=== PATIENT | female | born 1935 | race Caucasian/White ===

== ENCOUNTER → 2019-07-10 14:11 | Outpatient (CLI) | payer MEDICARE, SELFPAY ==
--- NOTE | 2019-07-10 14:23 | FL_ITS ---
PROCEDURE: FL VOIDING CYSTOURETHROGRAM CLINICAL INDICATION: CHRONIC INCONTINENCE COMPARISON: No exams were available for comparison FINDINGS: Risk Intern exam shows postsurgical changes of the lumbar spine at L4-L5 and S1 with inter pedicular screws along with a neural stimulator device in the right iliac fossa region and extending along the left paracentral aspect of the sacrum with surgical clips in the S1 area. 350 cc of Isovue 200 was instilled into the urinary bladder via Suarez catheter. There are bilateral bladder diverticula. No obvious mass evident at the bladder. The patient could not void for postvoid or voiding exam. No passive reflux was evident. There is a suspected renal stone at 7 mm and additional small left renal stone at 4 mm. IMPRESSION: 1. Multiple small bladder diverticula. 2. No passive reflux was evident. The patient was unable to void during or after the exam. 3. Left nephrolithiasis Dictated by: Luis Mosley MD 07/10/2019 16:29 Signed by: <Electronically signed by Luis Mosley MD in [place]> 07/10/2019 16:29
== END ==
PROVIDERS: PCP Internal Medicine; Visit Provider Internal Medicine
DX: N39.498 Other specified urinary incontinence (principal)
CPT/HCPCS: 74455; Q9966

== ENCOUNTER → 2019-08-02 14:14 | Outpatient (CLI) | payer MEDICARE, SELFPAY | PROVIDERS: Visit Provider Urology | DX: R39.89 Other symptoms and signs involving the genitourinary system (principal) | CPT/HCPCS: 87086; 87088; 87186 ==

== ENCOUNTER → 2020-10-03 15:32 | Outpatient (CLI) | payer MEDICARE, SELFPAY ==
--- NOTE | 2020-10-03 15:35 | CT_ITS ---
PROCEDURE: CT HEAD/BRAIN WO CON CLINICAL INDICATION: CONFUSION, DEMENTIA COMPARISON: CT HDWO CT HEAD W/O CONTRAST from 03/26/2015 TECHNIQUE: Axial images obtained. All CT scans at the facility use one or more dose reduction, viz: automated exposure control, ma/kV adjustment per patient size (including targeted exams where dose is matched to indication, i.e. head), or iterative reconstruction technique. FINDINGS: No midline shift, mass effect, intracranial hemorrhage, hydrocephalus, or extra-axial fluid collection is evident. There is generalized atrophy with hypoattenuation of the periventricular white matter consistent with microangiopathic changes. The calvarium has an unremarkable appearance. No mastoid effusion. No sinus air-fluid level. IMPRESSION: No acute intracranial finding Dictated by: Luis Mosley MD 10/03/2020 16:49 Luis Mosley MD in [place] 10/03/2020 16:49
== END ==
PROVIDERS: PCP Internal Medicine; Visit Provider Internal Medicine
DX: R41.0 Disorientation, unspecified (principal); F03.90 Unspecified dementia, unspecified severity, without behavioral disturbance, psychotic disturbance, mood disturbance, and anxiety
CPT/HCPCS: 70450

== ENCOUNTER → 2021-09-08 17:22 | Outpatient (CLI) | payer MEDICARE, SELFPAY ==
[2021-09-08 18:04] LABS: Basophils # 0.1 K/mm3 (0-0.2); Basophils % 1.7 % (0.1-2.0); Eosinophils # 0.1 K/mm3 (0.0-0.4); Eosinophils % 1.8 % (0.1-12.0); Hematocrit 38.8 % (37.0-47.0); Hemoglobin 12.5 g/dL (12.2-16.2); Lymphocytes % 34.4 % (10-50); Mean Corpuscular HGB Conc 32.2 g/dL (31.8-35.4); Mean Corpuscular Hemoglobin 32.8 pg (27.0-31.2); Mean Platelet Volume 9.2 fl (7.4-10.4); Monocytes # 0.3 K/mm3 (0.1-1.0); Monocytes % 4.4 % (1.7-9.3); Neutrophils # 3.4 K/mm3 (1.8-7.8); Neutrophils % 57.7 % (37.0-80.0); Platelet Count 166 K/mm3 (142-424); Red Blood Count 3.81 M/mm3 (4.20-5.40); Red Cell Distribution Width 14.1 % (11.5-17.5); White Blood Count 5.9 K/mm3 (4.8-10.8)
[2021-09-08 18:44] LABS: Alanine Aminotransferase 11 U/L (12-78); Alkaline Phosphatase 122 U/L (38-126); Anion Gap 13.3 mEq/L (5-15); Aspartate Amino Transferase 22 U/L (14-36); Bilirubin,Total 0.8 mg/dl (0.2-1.3); Blood Urea Nitrogen 20 mg/dl (7-17); Calcium 9.4 mg/dl (8.4-10.2); Carbon Dioxide 27 mmol/L (22.0-30.0); Chloride 102 mmol/L (98-107); Chol/HDL Ratio 2.2 (1-3.5); Cholesterol 177 mg/dl (140-200); Estimated Glomerular Filt Rate 59 ml/min (>60); GFR (African American) 72 ML/MIN (>60); Glucose 85 mg/dl (74-100); HDL Cholesterol 82 mg/dl (40-60); Potassium 4.3 mmoL/L (3.5-5.1); Sodium 138 mmol/L (136-145); Triglycerides 103 mg/dl (30-150); VLDL Cholesterol 21 mg/dL (0-40)
[2021-09-08 18:55] LABS: Direct LDL Cholesterol 68.46 mg/dL (100-129); Hemoglobin A1C 7.1 % (4.0-6.0)
== END ==
PROVIDERS: Visit Provider Internal Medicine
DX: E11.9 Type 2 diabetes mellitus without complications (principal); E78.5 Hyperlipidemia, unspecified; N18.9 Chronic kidney disease, unspecified; N31.2 Flaccid neuropathic bladder, not elsewhere classified; M79.7 Fibromyalgia; M15.0 Primary generalized (osteo)arthritis; I12.9 Hypertensive chronic kidney disease with stage 1 through stage 4 chronic kidney disease, or unspecified chronic kidney disease
CPT/HCPCS: 80053; 80061; 83036; 85025

== ENCOUNTER → 2021-09-16 15:30 | Outpatient (CLI) | payer MEDICARE, SELFPAY ==
[2021-09-16 16:20] LABS: Reticulocyte % (Auto) 1.6 % (0.9-3.2)
[2021-09-16 17:56] LABS: Vitamin B12 229 pg/mL (239-931)
[2021-09-16 18:04] LABS: Folate 8.22 ng/mL
== END ==
PROVIDERS: Visit Provider Internal Medicine
DX: R71.8 Other abnormality of red blood cells (principal)
CPT/HCPCS: 36415; 82607; 82746; 85044

== ENCOUNTER → 2022-03-22 17:03 | Outpatient (CLI) | payer MEDICARE, SELFPAY ==
[2022-03-22 20:08] LABS: Hemoglobin A1C 5.1 % (4.0-6.0)
[2022-03-22 20:34] LABS: Alanine Aminotransferase 10 U/L (12-78); Albumin Level 4.1 g/dl (3.5-5.0); Albumin/Globulin Ratio 2.4 (1.1-1.8); Alkaline Phosphatase 106 U/L (38-126); Anion Gap 15.4 mEq/L (5-15); Aspartate Amino Transferase 19 U/L (14-36); Bilirubin,Total 0.7 mg/dl (0.2-1.3); Blood Urea Nitrogen 24 mg/dl (7-17); Calcium 9.2 mg/dl (8.4-10.2); Carbon Dioxide 23 mmol/L (22.0-30.0); Chloride 104 mmol/L (98-107); Chol/HDL Ratio 2.8 (1-3.5); Cholesterol 170 mg/dl (140-200); Estimated Glomerular Filt Rate 53 ml/min (>60); GFR (African American) 64 ML/MIN (>60); Globulin 1.7 g/dL (1.3-3.2); Glucose 96 mg/dl (74-100); HDL Cholesterol 60 mg/dl (40-60); Potassium 4.4 mmoL/L (3.5-5.1); Sodium 138 mmol/L (136-145); Total Protein,Serum 5.8 g/dl (6.3-8.2); Triglycerides 141 mg/dl (30-150); VLDL Cholesterol 28 mg/dL (0-40)
[2022-03-22 20:45] LABS: Direct LDL Cholesterol 77.27 mg/dL (100-129)
== END ==
PROVIDERS: PCP Internal Medicine; Visit Provider Internal Medicine
DX: E11.22 Type 2 diabetes mellitus with diabetic chronic kidney disease (principal); I10 Essential (primary) hypertension; E78.5 Hyperlipidemia, unspecified; E53.8 Deficiency of other specified B group vitamins; G30.9 Alzheimer's disease, unspecified; N31.2 Flaccid neuropathic bladder, not elsewhere classified; M15.0 Primary generalized (osteo)arthritis
CPT/HCPCS: 80053; 80061; 83036

== ENCOUNTER → 2022-08-10 16:39 | Outpatient (CLI) | payer MEDICARE, SELFPAY | PROVIDERS: Visit Provider Urology | DX: N39.0 Urinary tract infection, site not specified (principal); B96.89 Other specified bacterial agents as the cause of diseases classified elsewhere | CPT/HCPCS: 87086; 87088; 87186 ==

== ENCOUNTER → 2022-09-21 17:02 | Outpatient (CLI) | payer MEDICARE, SELFPAY ==
[2022-09-21 17:51] LABS: Basophils # 0.1 K/mm3 (0-0.2); Basophils % 0.9 % (0.1-2.0); Eosinophils # 0.1 K/mm3 (0.0-0.4); Eosinophils % 1.5 % (0.1-12.0); Hematocrit 40.8 % (37.0-47.0); Lymphocytes # 2.3 K/mm3 (0.7-4.5); Lymphocytes % 30.9 % (10-50); Mean Corpuscular HGB Conc 31.8 g/dL (31.8-35.4); Mean Corpuscular Hemoglobin 31.4 pg (27.0-31.2); Mean Corpuscular Volume 98.8 fl (81-99); Mean Platelet Volume 8.7 fl (7.4-10.4); Monocytes # 0.3 K/mm3 (0.1-1.0); Monocytes % 4.1 % (1.7-9.3); Neutrophils # 4.6 K/mm3 (1.8-7.8); Neutrophils % 62.5 % (37.0-80.0); Platelet Count 158 K/mm3 (142-424); Red Blood Count 4.13 M/mm3 (4.20-5.40); Red Cell Distribution Width 13.8 % (11.5-17.5); White Blood Count 7.3 K/mm3 (4.8-10.8)
[2022-09-21 18:27] LABS: Hemoglobin A1C 5.1 % (4.0-6.0)
[2022-09-21 20:12] LABS: Alanine Aminotransferase 11 U/L (12-78); Albumin Level 4.2 g/dl (3.5-5.0); Albumin/Globulin Ratio 2.3 (1.1-1.8); Alkaline Phosphatase 106 U/L (38-126); Aspartate Amino Transferase 20 U/L (14-36); Bilirubin,Total 0.5 mg/dl (0.2-1.3); Blood Urea Nitrogen 21 mg/dl (7-17); Calcium 9.5 mg/dl (8.4-10.2); Carbon Dioxide 26 mmol/L (22.0-30.0); Chloride 99 mmol/L (98-107); Chol/HDL Ratio 3.2 (1-3.5); Cholesterol 180 mg/dl (140-200); Estimated Glomerular Filt Rate 42 ml/min (>60); GFR (African American) 51 ML/MIN (>60); Globulin 1.8 g/dL (1.3-3.2); Glucose 85 mg/dl (74-100); HDL Cholesterol 57 mg/dl (40-60); Sodium 140 mmol/L (136-145); Triglycerides 146 mg/dl (30-150); VLDL Cholesterol 29 mg/dL (0-40)
[2022-09-21 22:29] LABS: Direct LDL Cholesterol 89.28 mg/dL (100-129)
== END ==
PROVIDERS: PCP Internal Medicine; Visit Provider Internal Medicine
DX: E11.42 Type 2 diabetes mellitus with diabetic polyneuropathy (principal); F03.90 Unspecified dementia, unspecified severity, without behavioral disturbance, psychotic disturbance, mood disturbance, and anxiety; I10 Essential (primary) hypertension; M15.0 Primary generalized (osteo)arthritis; M79.7 Fibromyalgia; E53.8 Deficiency of other specified B group vitamins; N18.30 Chronic kidney disease, stage 3 unspecified; N31.2 Flaccid neuropathic bladder, not elsewhere classified; B96.89 Other specified bacterial agents as the cause of diseases classified elsewhere; R82.90 Unspecified abnormal findings in urine
CPT/HCPCS: 80053; 80061; 83036; 85025; 87086; 87088; 87186

== ENCOUNTER → 2022-10-26 14:27 | Outpatient (CLI) | payer MEDICARE, SELFPAY | PROVIDERS: PCP Internal Medicine; Visit Provider Internal Medicine | DX: N39.0 Urinary tract infection, site not specified (principal); B95.2 Enterococcus as the cause of diseases classified elsewhere | CPT/HCPCS: 87086; 87186 ==

== ENCOUNTER 2022-11-08 12:57 | Outpatient (CLI) | payer MEDICARE, SELFPAY ==
[2022-11-08 13:34] VITALS: BP 146/81; PULSE 74; RESP 18; O2SAT 97
[2022-11-08 13:37] VITALS: BP 142/71; PULSE 72; RESP 18; O2SAT 97
== END 2022-11-08 13:38 | disposition home or self-care (01) ==
LOC: INF 12:59
PROVIDERS: PCP Internal Medicine; Visit Provider Internal Medicine
DX: N39.0 Urinary tract infection, site not specified (principal)
CPT/HCPCS: 96372; J0696

== ENCOUNTER 2022-11-09 13:20 | Outpatient (CLI) | payer MEDICARE, SELFPAY ==
[2022-11-09 13:48] VITALS: BP 144/89; PULSE 76; RESP 18; O2SAT 96
== END 2022-11-09 13:50 | disposition home or self-care (01) ==
LOC: INF 13:21
PROVIDERS: PCP Internal Medicine; Visit Provider Internal Medicine
DX: N39.0 Urinary tract infection, site not specified (principal); B95.2 Enterococcus as the cause of diseases classified elsewhere
CPT/HCPCS: 96372; J0696

== ENCOUNTER 2022-11-10 13:05 | Outpatient (CLI) | payer MEDICARE, SELFPAY ==
[2022-11-10 13:25] VITALS: BP 118/57; PULSE 67; RESP 18; O2SAT 98
== END 2022-11-10 13:25 | disposition home or self-care (01) ==
LOC: INF 13:06
PROVIDERS: PCP Internal Medicine; Visit Provider Internal Medicine
DX: N39.0 Urinary tract infection, site not specified (principal)
CPT/HCPCS: 96372; J0696

== ENCOUNTER 2022-11-11 12:55 | Outpatient (CLI) | payer MEDICARE, SELFPAY ==
[2022-11-11 13:43] VITALS: BP 127/83; PULSE 71; RESP 18; TEMP 36.6; O2SAT 97
== END 2022-11-11 14:02 | disposition home or self-care (01) ==
LOC: INF 12:56
PROVIDERS: PCP Internal Medicine; Visit Provider Internal Medicine
DX: N39.0 Urinary tract infection, site not specified (principal)
CPT/HCPCS: 96372; J0696

== ENCOUNTER 2022-11-12 13:01 | Outpatient (CLI) | payer MEDICARE, SELFPAY ==
[2022-11-12 13:37] VITALS: BP 152/77; PULSE 64; RESP 18; O2SAT 96
== END 2022-11-12 13:39 | disposition home or self-care (01) ==
LOC: INF 13:02
PROVIDERS: PCP Internal Medicine; Visit Provider Internal Medicine
DX: N39.0 Urinary tract infection, site not specified (principal)
CPT/HCPCS: 96372; J0696

== ENCOUNTER → 2022-11-13 12:57 | Outpatient (CLI) | payer MEDICARE, SELFPAY ==
[2022-11-13 13:15] VITALS: BP 162/90; PULSE 62; RESP 17; TEMP 36.7; O2SAT 98
== END ==
PROVIDERS: PCP Internal Medicine; Visit Provider Internal Medicine
DX: N39.0 Urinary tract infection, site not specified (principal)
CPT/HCPCS: 96372; J0696

== ENCOUNTER 2022-11-14 13:01 | Outpatient (CLI) | payer MEDICARE, SELFPAY ==
[2022-11-14 13:33] VITALS: BMI 28.0
== END 2022-11-14 13:30 | disposition home or self-care (01) ==
LOC: INF 13:02
PROVIDERS: PCP Internal Medicine; Visit Provider Internal Medicine
DX: N39.0 Urinary tract infection, site not specified (principal)
CPT/HCPCS: 96372; J0696

== ENCOUNTER → 2023-03-21 16:46 | Outpatient (CLI) | payer MEDICARE, SELFPAY ==
[2023-03-21 17:42] LABS: Alanine Aminotransferase 14 U/L (12-78); Albumin/Globulin Ratio 2.2 (1.1-1.8); Alkaline Phosphatase 92 U/L (38-126); Aspartate Amino Transferase 22 U/L (14-36); Bilirubin,Total 0.6 mg/dl (0.2-1.3); Blood Urea Nitrogen 15 mg/dl (7-17); Carbon Dioxide 27 mmol/L (22.0-30.0); Chloride 98 mmol/L (98-107); Chol/HDL Ratio 3.2 (1-3.5); Cholesterol 160 mg/dl (140-200); Estimated Glomerular Filt Rate 52 ml/min (>60); GFR (African American) 63 ML/MIN (>60); Globulin 1.8 g/dL (1.3-3.2); Glucose 88 mg/dl (74-100); HDL Cholesterol 50 mg/dl (40-60); Sodium 139 mmol/L (136-145); Total Protein,Serum 5.8 g/dl (6.3-8.2); Triglycerides 179 mg/dl (30-150); VLDL Cholesterol 36 mg/dL (0-40)
[2023-03-21 17:53] LABS: Direct LDL Cholesterol 82.29 mg/dL (100-129)
== END ==
PROVIDERS: PCP Internal Medicine; Visit Provider Internal Medicine
DX: E11.22 Type 2 diabetes mellitus with diabetic chronic kidney disease (principal); E53.8 Deficiency of other specified B group vitamins; I10 Essential (primary) hypertension; N18.30 Chronic kidney disease, stage 3 unspecified; N31.2 Flaccid neuropathic bladder, not elsewhere classified; G30.9 Alzheimer's disease, unspecified; L30.4 Erythema intertrigo; E78.5 Hyperlipidemia, unspecified
CPT/HCPCS: 80053; 80061; 83036

== ENCOUNTER → 2023-06-20 16:56 | Outpatient (CLI) | payer MEDICARE, SELFPAY ==
[2023-06-20 18:08] LABS: Microscopic, Urine URINE MICROSCOPIC (MICROSCOPIC)
[2023-06-20 18:17] LABS: Appearance,Urine CLEAR (Clear); Blood, Urine Negative (Negative); Color,Urine YELLOW (Yellow); Glucose,Urine (UA) Negative (Negative); Ketones,Urine TRACE (Negative); Leukocyte Esterase,Urine 2+ (Negative); Nitrate,Urine Negative (Negative); Protein,Urine 2+ (Negative)
[2023-06-20 18:18] LABS: Bilirubin,Urine 1+ (Negative)
[2023-06-20 18:28] LABS: Bacteria,Urine 2+ /lpf; Calcium Oxalate Crystals,Urine 4+ /lpf; WBC,Urine TNTC #/hpf (0-3)
== END ==
PROVIDERS: PCP Internal Medicine; Visit Provider Internal Medicine
DX: N39.0 Urinary tract infection, site not specified (principal); B96.4 Proteus (mirabilis) (morganii) as the cause of diseases classified elsewhere
CPT/HCPCS: 81001; 87086; 87088; 87186

== ENCOUNTER → 2023-09-20 16:40 | Outpatient (CLI) | payer MEDICARE, SELFPAY ==
[2023-09-20 17:33] LABS: Basophils % 0.5 % (0.1-2.0); Eosinophils # 0.2 K/mm3 (0.0-0.4); Eosinophils % 2.1 % (0.1-12.0); Hematocrit 36.7 % (37.0-47.0); Hemoglobin 12.7 g/dL (12.2-16.2); Lymphocytes # 2.5 K/mm3 (0.7-4.5); Lymphocytes % 35.1 % (10-50); Mean Corpuscular HGB Conc 34.5 g/dL (31.8-35.4); Mean Corpuscular Hemoglobin 34.1 pg (27.0-31.2); Mean Corpuscular Volume 99.1 fl (81-99); Monocytes # 0.3 K/mm3 (0.1-1.0); Monocytes % 3.9 % (1.7-9.3); Neutrophils # 4.2 K/mm3 (1.8-7.8); Neutrophils % 58.4 % (37.0-80.0); Platelet Count 161 K/mm3 (142-424); Red Blood Count 3.71 M/mm3 (4.20-5.40); Red Cell Distribution Width 14.2 % (11.5-17.5); White Blood Count 7.1 K/mm3 (4.8-10.8)
[2023-09-20 18:04] LABS: Alanine Aminotransferase 10 U/L (12-78); Albumin Level 3.9 g/dl (3.5-5.0); Albumin/Globulin Ratio 2.1 (1.1-1.8); Alkaline Phosphatase 81 U/L (38-126); Anion Gap 15.2 mEq/L (5-15); Aspartate Amino Transferase 20 U/L (14-36); Bilirubin,Total 0.6 mg/dl (0.2-1.3); Blood Urea Nitrogen 16 mg/dl (7-17); Carbon Dioxide 26 mmol/L (22.0-30.0); Chloride 104 mmol/L (98-107); Chol/HDL Ratio 3.2 (1-3.5); Cholesterol 170 mg/dl (140-200); Estimated Glomerular Filt Rate 59 ml/min (>60); GFR (African American) 71 ML/MIN (>60); Globulin 1.9 g/dL (1.3-3.2); Glucose 91 mg/dl (74-100); HDL Cholesterol 53 mg/dl (40-60); Potassium 4.2 mmoL/L (3.5-5.1); Sodium 141 mmol/L (136-145); Total Protein,Serum 5.8 g/dl (6.3-8.2); Triglycerides 101 mg/dl (30-150); VLDL Cholesterol 20 mg/dL (0-40)
[2023-09-20 18:08] LABS: Hemoglobin A1C 4.9 % (4.0-6.0)
[2023-09-20 18:21] LABS: Direct LDL Cholesterol 93.45 mg/dL (100-129)
== END ==
PROVIDERS: PCP Internal Medicine; Visit Provider Internal Medicine
DX: E11.22 Type 2 diabetes mellitus with diabetic chronic kidney disease (principal); E53.8 Deficiency of other specified B group vitamins; E78.5 Hyperlipidemia, unspecified; G30.9 Alzheimer's disease, unspecified; M15.0 Primary generalized (osteo)arthritis; M79.7 Fibromyalgia; N31.2 Flaccid neuropathic bladder, not elsewhere classified; N19 Unspecified kidney failure
CPT/HCPCS: 80053; 80061; 83036; 85025

== ENCOUNTER 2023-12-12 14:37 | Outpatient (CLI) | payer MEDICARE, SELFPAY ==
[2023-12-12 15:41] LABS: Thyroid Stimulating Hormone 0.96 uIU/mL (0.465-4.68)
[2023-12-12 16:17] LABS: Vitamin B12 831 pg/mL (239-931)
[2023-12-12 16:21] LABS: Folate 4.69 ng/mL
== END 2023-12-12 23:59 ==
LOC: LAB 14:38
PROVIDERS: PCP Internal Medicine; Visit Provider Nurse Practitioner Family
DX: E53.8 Deficiency of other specified B group vitamins (principal); R41.3 Other amnesia
CPT/HCPCS: 36415; 82607; 82746; 84443

== ENCOUNTER 2024-03-20 16:51 | Outpatient (CLI) | payer MEDICARE, SELFPAY ==
[2024-03-20 18:26] LABS: Alanine Aminotransferase 10 U/L (12-78); Albumin Level 4.1 g/dl (3.5-5.0); Albumin/Globulin Ratio 2.3 (1.1-1.8); Alkaline Phosphatase 85 U/L (38-126); Anion Gap 13.9 mEq/L (5-15); Aspartate Amino Transferase 20 U/L (14-36); Bilirubin,Total 0.8 mg/dl (0.2-1.3); Blood Urea Nitrogen 17 mg/dl (7-17); Calcium 9.4 mg/dl (8.4-10.2); Carbon Dioxide 29 mmol/L (22.0-30.0); Chloride 104 mmol/L (98-107); Chol/HDL Ratio 2.8 (1-3.5); Cholesterol 181 mg/dl (140-200); Estimated Glomerular Filt Rate 59 ml/min (>60); GFR (African American) 71 ML/MIN (>60); Globulin 1.8 g/dL (1.3-3.2); Glucose 85 mg/dl (74-100); HDL Cholesterol 65 mg/dl (40-60); Potassium 3.9 mmoL/L (3.5-5.1); Sodium 143 mmol/L (136-145); Total Protein,Serum 5.9 g/dl (6.3-8.2); Triglycerides 142 mg/dl (30-150); VLDL Cholesterol 28 mg/dL (0-40)
[2024-03-20 19:17] LABS: Hemoglobin A1C 4.9 % (4.0-6.0)
== END 2024-03-20 23:59 | disposition home or self-care (01) ==
LOC: LAB.DROPOF 16:52
PROVIDERS: PCP Internal Medicine; Visit Provider Internal Medicine
DX: E11.22 Type 2 diabetes mellitus with diabetic chronic kidney disease (principal); I10 Essential (primary) hypertension; E78.5 Hyperlipidemia, unspecified; M15.0 Primary generalized (osteo)arthritis; G30.9 Alzheimer's disease, unspecified; N31.2 Flaccid neuropathic bladder, not elsewhere classified; N19 Unspecified kidney failure
CPT/HCPCS: 80053; 80061; 83036

== ENCOUNTER 2024-04-19 17:04 | Observation (INO) | payer MEDICARE, SELFPAY ==
[2024-04-19 17:05] VITALS: BP 155/81; PULSE 70; RESP 18; TEMP 36.6; O2SAT 95; BMI 24.5
--- NOTE | 2024-04-19 17:13 | ED_ITS ---
<Statement entered by Ekaterina Miles DO - 04/19/24 19:38> I was consulted by the CAITLIN, and we discussed the complexity of the problems being addressed. I approved the treatment and management plan for this patient's care in the emergency department, thus performing a substantive portion of the medical decision making. Ekaterina Miles DO Discharge Plan Disposition Patient Disposition: Admitted Condition: Fair Clinical Impressions Clinical Impression: Urinary tract bacterial infections, Dementia with behavioral disturbance Discharge ED Provider: Ekaterina Miles General Adult HPI General Chief complaint: Altered Mental Status Stated complaint: diff swallowing, hallucinations, Time Seen by Provider: 04/19/24 17:07 History of Present Illness HPI narrative: Patient presents in the care of her son [id number] for evaluation of dementia with worsening behavioral disturbance. Patient has a longstanding history of dementia and has most recently been evaluated by neurology here at [facility] in November. Over the last week patient has had a cognitive decline with behavioral services such as asking where her is, asking to be taken home even though she is at her home etc. patient herself is a poor historian but denies chest pain shortness of breath fever chills hemoptysis hematochezia melena nausea vomiting diarrhea but keeps asking to be taken home. Related Data Home Medications Medication Instructions Recorded Confirmed losartan 100 1 tab PO DAILY Hypertension #90 08/02/19 11/30/23 mg-hydrochlorothiazide 12.5 mg tabs tablet oxybutynin chloride 15 mg 15 mg PO DAILY incontinence 11/08/22 11/30/23 tablet,extended release 24 hr sulfamethoxazole 400 1 tab PO DAILY Infection 11/08/22 11/30/23 mg-trimethoprim 80 mg tablet trazodone 50 mg tablet 100 mg PO DAILY sleep 11/30/23 11/30/23 Previous Rx's Medication Instructions Recorded donepezil 10 mg tablet 10 mg PO HS memory 90 days #90 11/30/23 tabs memantine 10 mg tablet 10 mg PO BID memory loss 90 days 11/30/23 #180 tabs Allergies Allergy/AdvReac Type Severity Reaction Status Date / Time No Known Allergies Allergy Verified 11/30/23 09:38 [facility] Disclaimer: The information contained in this section may have been updated after the patient was seen, as this information can be updated by other users. Medical History (Updated 04/19/24 @ 18:37 by JESSIKA Rojas) Memory change History of cataract History of arthritis History of kidney stones Hypertension Neurogenic bladder Back pain with history of spinal surgery UTI (urinary tract infection) Surgical History (Updated 11/30/23 @ 10:16 by Anya Amaya) History of cataract surgery History of total knee replacement History of discectomy Family History (Updated 11/30/23 @ 09:42 by Anya Amaya) Other Cancer Hypertension Stroke Social History (Updated 11/11/22 @ 13:51 by Duglas Navarro RN) Smoking Status: Unknown if ever smoked alcohol intake: never substance use type: denies use current occupational status: retired and disabled Travel in the last 8 weeks: None household members: spouse housing: house ROS Obtained: Yes Systems reviewed as appropriate & no additional complaints except as documented Physical Exam General General appearance: in no apparent distress Head Head exam: atraumatic Eye Eye exam: Present normal appearance, PERRL and EOMI Chest Chest inspection: Present normal inspection Respiratory Respiratory exam: Present normal lung sounds bilaterally; Absent respiratory distress or accessory muscle use Cardiovascular Cardiovascular exam: Present regular rate and normal rhythm Abdominal Exam Abdominal exam: Present soft and normal bowel sounds; Absent tenderness Extremities Exam Extremities exam: Present normal inspection and full ROM Back Exam Back exam: Present normal inspection and full ROM; Absent tenderness, CVA tenderness (R) or CVA tenderness (L) Neurological Exam Neurological exam: Absent alert (Patient is oriented to self not place or circumstance) or oriented X3 Psychiatric Psychiatric exam: Present normal affect (Pleasantly confused) and agitated (She is asking to go home but is cooperative currently) Skin Skin exam: Present warm, dry and normal color Medical Decision Making Medical Records Medical records reviewed: Yes I reviewed the patient's medical records. Alpesh Inquiry Pt receiving controlled substance: No Vital Signs: 04/19/24 17:05 04/19/24 18:01 04/19/24 19:00 Temperature 97.9 F Temperature Source Oral Pulse Rate 68 66 Pulse Rate [Radial] 70 Respiratory Rate 18 Blood Pressure 153/84 H 158/83 H Blood Pressure [Right Arm] 155/81 H Blood Pressure Mean 108 Blood Pressure Mean [Right Arm] 105 Blood Pressure Source [Right Arm] Automatic Cuff Blood Pressure Position [Right Arm] Sitting 02 Sat by Pulse Oximetry 95 95 96 Oxygen Delivery Method Room Air Lab Data Lab results reviewed: Yes I reviewed the patient's lab results. Lab Results 04/19/24 17:35: WBC 7.1, RBC 3.66 L, Hgb 12.3, Hct 37.1, MCV 101.3 H, MCH 33.6 H , MCHC 33.2, RDW 14.2, Plt Count 171, MPV 8.5, Neut % (Auto) 75.9, Lymph % (Auto) 18.7, [place] % (Auto) 3.8, Eos % (Auto) 0.7, Baso % (Auto) 0.8, Neut # (Auto) 5.4, Lymph # (Auto) 1.3, [place] # (Auto) 0.3, Eos # (Auto) 0.1, Baso # (Auto) 0.1, Sodium 141, Potassium 3.7, Chloride 103, Carbon Dioxide 26, Anion Gap 15.7 H, BUN 15, Creatinine 0.70, Estimated Creat Clear 36, Estimated GFR 79, Est GFR ( Amer) 96, Glucose 109 H, Calcium 9.4, Magnesium 1.6, Total Bilirubin 1.2, AST 24, ALT 15, Alkaline Phosphatase 81, Total Protein 6.4, Albumin 4.2, Globulin 2.2, Albumin/Globulin Ratio 1.9 H 04/19/24 17:38: Urine Color Yellow, Urine Appearance Sl cloudy, Urine pH 7.5, Ur Specific [place] 1.020, Urine Protein Negative, Urine Glucose (UA) Negative, Urine Ketones 1+, Urine Blood Negative, Urine Nitrate Negative, Urine Bilirubin Negative, Urine Urobilinogen 1.0, Ur Leukocyte Esterase 3+ A, Urine RBC None, Urine WBC 5-10, Ur Squamous Epith Cells Occasional, Amorphous Sediment 1+, Urine Bacteria 2+ 04/19/24 17:35 04/19/24 17:35 Orders (Tests/Meds): ED MEDICATIONS Generic Name Dose Route Start Last Admin Trade Name Freq PRN Reason Stop Dose Admin Donepezil HCl 10 mg 04/19/24 21:00 Donepezil 10mg Tab PO 05/19/24 20:59 HS JOCELIN Ceftriaxone Sodium 1 gm/ 50 mls @ 100 mls/hr 04/19/24 18:15 Sodium Chloride IV 04/29/24 18:14 Q24H JOCELIN Memantine 10 mg 04/19/24 21:00 Memantine 10mg Tablet PO 05/19/24 20:59 BID JOCELIN Non-Formulary Medication 1 tab 04/20/24 09:00 Losartan-Hydrochlorothiazide PO 05/20/24 08:59 DAILY JOCELIN Olanzapine 5 mg 04/19/24 21:00 Olanzapine 5 Mg Odt Tablet SL 05/19/24 20:59 HS JOCELIN Oxybutynin Chloride 5 mg 04/19/24 21:00 Oxybutynin 5mg Tab PO 05/19/24 20:59 TID JOCELIN ORDERS Category Date Time Status CBC w/Auto Diff [Complete Blood Count Auto Diff] Stat Lab 04/19/24 17:35 Completed CMP [Comprehensive Metabolic Panel] Stat Lab 04/19/24 17:35 Completed Complete Blood Count Auto Diff AMLAB Lab 04/20/24 06:00 Ordered Comprehensive Metabolic Panel AMLAB Lab 04/20/24 06:00 Ordered Magnesium AMLAB Lab 04/20/24 06:00 Ordered Magnesium Stat Lab 04/19/24 17:35 Completed UA [Urinalysis and Microscopic] Stat Lab 04/19/24 17:38 Completed Urine Culture Stat Micro 04/19/24 17:38 Received Medical Decision Narrative: In summary patient is a 88-year-old female who presents to the emergency department for evaluation of dementia with behavioral disturbance. Patient is hemodynamically stable upon arrival, afebrile. Physical exam is unremarkable and nonfocal with exception of the patient as pleasant but confused interactions currently. She is only oriented to self.. Differential diagnosis includes cognitive decline versus toxic metabolic encephalopathy, versus urinary tract infection etc. Initial workup will be conducted with hematologic labs urinalysis. Initial workup reviewed by me shows a normal white count however she does have evidence of a urinary tract infection. Upon repeat evaluation patient had no change in her behavior. Given this I had interactive discussion with hospital medicine regarding admission and they have graciously accepted her for further evaluation and care. Critical Care Critical Care Time Critical Care Time: No
[2024-04-19 17:41] LABS: Microscopic, Urine URINE MICROSCOPIC (MICROSCOPIC)
[2024-04-19 17:43] LABS: Basophils # 0.1 K/mm3 (0-0.2); Basophils % 0.8 % (0.1-2.0); Eosinophils # 0.1 K/mm3 (0.0-0.4); Eosinophils % 0.7 % (0.1-12.0); Hematocrit 37.1 % (37.0-47.0); Hemoglobin 12.3 g/dL (12.2-16.2); Lymphocytes # 1.3 K/mm3 (0.7-4.5); Lymphocytes % 18.7 % (10-50); Mean Corpuscular HGB Conc 33.2 g/dL (31.8-35.4); Mean Corpuscular Hemoglobin 33.6 pg (27.0-31.2); Mean Corpuscular Volume 101.3 fl (81-99); Mean Platelet Volume 8.5 fl (7.4-10.4); Monocytes # 0.3 K/mm3 (0.1-1.0); Monocytes % 3.8 % (1.7-9.3); Neutrophils # 5.4 K/mm3 (1.8-7.8); Neutrophils % 75.9 % (37.0-80.0); Platelet Count 171 K/mm3 (142-424); Red Blood Count 3.66 M/mm3 (4.20-5.40); Red Cell Distribution Width 14.2 % (11.5-17.5); White Blood Count 7.1 K/mm3 (4.8-10.8)
[2024-04-19 17:53] LABS: Alanine Aminotransferase 15 U/L (12-78); Albumin Level 4.2 g/dl (3.5-5.0); Albumin/Globulin Ratio 1.9 (1.1-1.8); Alkaline Phosphatase 81 U/L (38-126); Anion Gap 15.7 mEq/L (5-15); Aspartate Amino Transferase 24 U/L (14-36); Bilirubin,Total 1.2 mg/dl (0.2-1.3); Blood Urea Nitrogen 15 mg/dl (7-17); Calcium 9.4 mg/dl (8.4-10.2); Carbon Dioxide 26 mmol/L (22.0-30.0); Chloride 103 mmol/L (98-107); Creatinine Clearance Estimated 36 mL/min (50-200); Estimated Glomerular Filt Rate 79 ml/min (>60); GFR (African American) 96 ML/MIN (>60); Globulin 2.2 g/dL (1.3-3.2); Glucose 109 mg/dl (74-100); Magnesium 1.6 mg/dl (1.6-2.3); Potassium 3.7 mmoL/L (3.5-5.1); Sodium 141 mmol/L (136-145); Total Protein,Serum 6.4 g/dl (6.3-8.2)
[2024-04-19 17:56] LABS: Appearance,Urine SL CLOUDY (Clear); Bilirubin,Urine Negative (Negative); Blood, Urine Negative (Negative); Color,Urine YELLOW (Yellow); Glucose,Urine (UA) Negative (Negative); Ketones,Urine 1+ (Negative); Leukocyte Esterase,Urine 3+ (Negative); Nitrate,Urine Negative (Negative); PH,Urine 7.5 (5.0-8.5); Protein,Urine Negative (Negative)
[2024-04-19 18:01] VITALS: BP 153/84; PULSE 68; O2SAT 95
[2024-04-19 18:06] LABS: Amorphous Sediment,Urine 1+ /lpf; Bacteria,Urine 2+ /lpf; Squamous Epithelial Cell,Urine Occasional #/hpf (0-5)
--- NOTE | 2024-04-19 18:59 | PC.NURSE ---
INDEPENDENT DISTRIBUTOR NOTIFIED OF ADMISSION
[2024-04-19 19:00] VITALS: BP 158/83; PULSE 66; O2SAT 96
[2024-04-19 19:21] VITALS: BP 158/83; PULSE 66; RESP 16; TEMP 36.6; O2SAT 96
--- NOTE | 2024-04-19 19:37 | PC.NURSE ---
Patient arrived to floor via stretcher from ED at 19:32.
--- NOTE | 2024-04-19 19:38 | P.HP_ITS ---
History of Present Illness *Admission Date: 04/19/24 *Reason for visit:: behavioral disturbance. *History of present illness: This a 88yo F with PMHx of Alzheimer's dementia with behavioral disturbances, HTN, neurogenic bladder with urinary incontinence and recurrent UTI, brought in by caregiver to ED for evaluation of worsening behavioral disturbance. Patient alert and oriented to person only, not cooperative with the interview, there is not family available at the time of this assessment, therefore most of the history obtained by chart review and ED documentation. Patient has a longstanding history of dementia and has most recently been evaluated by neurology here at [facility] in November. Per ED. patient has had a cognitive decline with behavioral services such as asking where her is, asking to be taken home even though she is at her home etc. symptoms progressively worsened over the last week. Patient herself denies currently denies any symptoms including chest pain shortness of breath fever chills hemoptysis hematochezia melena nausea vomiting diarrhea but keeps asking to be taken home. Admitted for treatment and management [facility] Disclaimer: The information contained in this section may have been updated after the patient was seen, as this information can be updated by other users. Medical History (Updated 04/19/24 @ 20:40 by Pelon Kwan APRN) Memory change History of cataract History of arthritis History of kidney stones Hypertension Neurogenic bladder Back pain with history of spinal surgery UTI (urinary tract infection) Surgical History (Updated 11/30/23 @ 10:16 by Anya Amaya) History of cataract surgery History of total knee replacement History of discectomy Family History (Updated 11/30/23 @ 09:42 by Anya Amaya) Other Cancer Hypertension Stroke Social History (Updated 04/19/24 @ 21:32 by Jessika Fermin RN) Smoking Status: Unknown if ever smoked alcohol intake: never substance use type: denies use current occupational status: retired and disabled Travel in the last 8 weeks: None household members: spouse housing: house Review of Systems Review of Systems Review of systems:: unable to obtain Meds Home Medications and Allergies Home Medications Medication Instructions Recorded Confirmed Type oxybutynin chloride 15 mg 15 mg PO DAILY 11/08/22 04/20/24 History tablet,extended release 24 hr donepezil 10 mg tablet 10 mg PO HS memory 90 days #90 11/30/23 04/20/24 Rx tabs memantine 10 mg tablet 10 mg PO BID memory loss 90 days 11/30/23 04/20/24 Rx #180 tabs levofloxacin 750 mg tablet 750 mg PO DAILY 5 days #5 tabs 04/20/24 Rx losartan 100 mg tablet 100 mg PO DAILY 04/20/24 04/20/24 History methenamine hippurate 1 gram tablet 1 g PO BID 30 days #60 tabs 04/20/24 Rx olanzapine 5 mg disintegrating 5 mg sublingual HS PRN Insomnia 5 04/20/24 Rx tablet days #5 tabs trazodone 100 mg tablet 100 mg PO HS 04/20/24 04/20/24 History New Prescriptions to Start Prescriptions: levofloxacin Wilberto Bloom methenamine hippurate Wolf,Wilberto olanzapine Wilberto Bloom Allergies Allergy/AdvReac Type Severity Reaction Status Date / Time No Known Allergies Allergy Verified 11/30/23 09:38 Exam Data for Last 24 hours Vital signs and Labs for Last 24 Hours: Temp Pulse Resp BP Pulse Ox O2 Del Method 97.9 F 66 16 158/83 H 96 Room Air 04/19/24 19:21 04/19/24 19:21 04/19/24 19:21 04/19/24 19:21 04/19/24 19:00 04/19/24 17:05 Laboratory Results - last 24 hr 04/19/24 17:35: WBC 7.1, RBC 3.66 L, Hgb 12.3, Hct 37.1, MCV 101.3 H, MCH 33.6 H , MCHC 33.2, RDW 14.2, Plt Count 171, MPV 8.5, Neut % (Auto) 75.9, Lymph % (Auto) 18.7, [place] % (Auto) 3.8, Eos % (Auto) 0.7, Baso % (Auto) 0.8, Neut # (Auto) 5.4, Lymph # (Auto) 1.3, [place] # (Auto) 0.3, Eos # (Auto) 0.1, Baso # (Auto) 0.1, Sodium 141, Potassium 3.7, Chloride 103, Carbon Dioxide 26, Anion Gap 15.7 H, BUN 15, Creatinine 0.70, Estimated Creat Clear 36, Estimated GFR 79, Est GFR ( Amer) 96, Glucose 109 H, Calcium 9.4, Magnesium 1.6, Total Bilirubin 1.2, AST 24, ALT 15, Alkaline Phosphatase 81, Total Protein 6.4, Albumin 4.2, Globulin 2.2, Albumin/Globulin Ratio 1.9 H 04/19/24 17:38: Urine Color Yellow, Urine Appearance Sl cloudy, Urine pH 7.5, Ur Specific [place] 1.020, Urine Protein Negative, Urine Glucose (UA) Negative, Urine Ketones 1+, Urine Blood Negative, Urine Nitrate Negative, Urine Bilirubin Negative, Urine Urobilinogen 1.0, Ur Leukocyte Esterase 3+ A, Urine RBC None, Urine WBC 5-10, Ur Squamous Epith Cells Occasional, Amorphous Sediment 1+, Urine Bacteria 2+ I & O for Last 24 hours: Intake & Output 04/16/24 04/17/24 04/18/24 04/19/24 23:59 23:59 23:59 23:59 Weight 58.967 kg Constitutional Constitutional: no acute distress and agitated *Routine HEENT Exam Head: Present normocephalic Eye: Present EOMI and PERRL ENT: Present mucous membranes moist *Routine Neck Exam Neck: Present supple; Absent lymphadenopathy *Routine Respiratory Exam Respiratory: Present CTA bilaterally *Routine Cardiovascular Exam Cardiovascular: Present RRR *Routine Abdominal Exam Abdominal: Present soft and normoactive bowel sounds; Absent tenderness *Routine Rectal Exam Rectal:: deferred *Routine Genitalia Exam Genitalia:: deferred *Routine Extremities Exam Extremities: Absent cyanosis, clubbing or edema *Routine Skin Exam Skin: Present warm; Absent rash *Routine Neurological Exam Neurological: Present alert and moving all extremities; Absent oriented X3 Routine Psychiatric Exam Psychiatric: Present agitated; Absent cooperative Assessment and Plan *Assessment and plan (1) Encephalopathy due to infection: Status: Acute Category: Medical Code(s): G93.49 - Other encephalopathy; B99.9 - Unspecified infectious disease (2) Urinary tract bacterial infections: Status: Acute Category: Medical Code(s): N39.0 - Urinary tract infection, site not specified; A49.9 - Bacterial infection, unspecified (3) Dementia with behavioral disturbance: Status: Acute Category: Medical Code(s): F03.918 - Unspecified dementia, unspecified severity, with other behavioral disturbance (4) Recurrent urinary tract infection: Status: Acute Category: Medical Code(s): N39.0 - Urinary tract infection, site not specified (5) Urinary incontinence in female: Status: Acute Category: Medical Code(s): R32 - Unspecified urinary incontinence (6) Neurogenic bladder: Status: Acute Category: Medical Code(s): N31.9 - Neuromuscular dysfunction of bladder, unspecified (7) Hypertension: Status: Acute Qualifiers: Hypertension type: unspecified Qualified Code(s): I10 - Essential (primary) hypertension Category: Medical Code(s): I10 - Essential (primary) hypertension Plan 88yo F with PMHx of Alzheimer's dementia with behavioral disturbances, HTN, neurogenic bladder with urinary incontinence and recurrent UTI, brought in by caregiver to ED for evaluation of worsening behavioral disturbance. arrived stable, afebrile, confused and disoriented. Initial work up are unremarkable. however UA shows signs of UTI. Culture pending. Findings discussed with ED, admission requested. Agreed for it. Plan as follow: -Acute toxic encepahlopathy secondary to UTI: Recurrent UTI, Hx of Alzheimer dementia with behavioral disturbance aggravated. Admit patient. Dispo MedSurg Start continuous monitoring. Monitor for behavioral disturbances UA culture pending On ceftriaxone 1 g every 24 hours Resumed on aspirin memantine and trazodone Provide cluster care to avoid hospital delirium Repeat labs in the morning. Watch WBC monitor for sepsis -History of urinary incontinence secondary to neurogenic bladder Resume oxybutynin -Hypertension Stable On losartan and hydrochlorothiazide Insomnia/sleep disorder -Takes trazodone at home. Has not slept for the better part of the past 48 hours. Will trial Zyprexa 5 mg nightly. Monitor for improvement and disposition in the morning and improve sleep. Lovenox and protonix for prophylaxis Full code Rounded on patient after nurse practitioner. Personally examined and interviewed patient. Agree with exam findings and care plan as documented.
[2024-04-19 19:40] VITALS: BP 153/76; PULSE 72; RESP 18; TEMP 36.7; O2SAT 94; BMI 23.3
[2024-04-19] MEDS: MEMANTINE 10MG TABLET 10 MG PO (20:02)
[2024-04-19] MEDS: OXYBUTYNIN 5MG TAB 5 MG PO (20:03)
[2024-04-19] MEDS: DONEPEZIL 10MG TAB 10 MG PO (20:03)
[2024-04-19] MEDS: OLANZapine 5 MG ODT TABLET SL (20:03)
[2024-04-19] MEDS: CEFTRIAXONE SODIUM 1 GM in 0.9 % SODIUM CHLORIDE 50 ML IV (20:07)
--- NOTE | 2024-04-20 03:44 | PC.NURSE ---
Pt is alert to self and currently tolerating RA well. Pt arrived to the unit angry and yelling at family members and staff. Pt is confused and continues to ask why she is here and what we are doing attempts to reorient were unsuccessful. Pt received HS meds and has rested well since. Pt did complain of moderate back and shoulder pain, contacted HALEIGH, IMMIGRATION INVESTIGATOR for pain medications and received orders for treatment of pain see JAN. Pt is a high fall riak due to orientation and confusion bed alarm is set.
[2024-04-20 04:00] VITALS: BP 114/58; PULSE 81; RESP 18; TEMP 36.6; O2SAT 95; BMI 24.0
[2024-04-20 06:18] LABS: Basophils # 0.1 K/mm3 (0-0.2); Basophils % 0.9 % (0.1-2.0); Eosinophils # 0.1 K/mm3 (0.0-0.4); Eosinophils % 1.2 % (0.1-12.0); Hematocrit 35.5 % (37.0-47.0); Hemoglobin 11.2 g/dL (12.2-16.2); Lymphocytes # 2.3 K/mm3 (0.7-4.5); Lymphocytes % 32.1 % (10-50); Mean Corpuscular HGB Conc 31.6 g/dL (31.8-35.4); Mean Corpuscular Hemoglobin 32.7 pg (27.0-31.2); Mean Corpuscular Volume 103.5 fl (81-99); Mean Platelet Volume 9.1 fl (7.4-10.4); Monocytes # 0.3 K/mm3 (0.1-1.0); Monocytes % 4.1 % (1.7-9.3); Neutrophils # 4.5 K/mm3 (1.8-7.8); Neutrophils % 61.6 % (37.0-80.0); Platelet Count 162 K/mm3 (142-424); Red Blood Count 3.43 M/mm3 (4.20-5.40); Red Cell Distribution Width 14.2 % (11.5-17.5); White Blood Count 7.3 K/mm3 (4.8-10.8)
[2024-04-20 06:21] LABS: Chloride 108 mmol/L (98-107)
[2024-04-20 06:22] LABS: Potassium 3.5 mmoL/L (3.5-5.1); Sodium 141 mmol/L (136-145)
[2024-04-20 06:24] LABS: Alanine Aminotransferase 7 U/L (12-78); Alkaline Phosphatase 69 U/L (38-126); Anion Gap 10.5 mEq/L (5-15); Aspartate Amino Transferase 20 U/L (14-36); Bilirubin,Total 1.2 mg/dl (0.2-1.3); Blood Urea Nitrogen 15 mg/dl (7-17); Carbon Dioxide 26 mmol/L (22.0-30.0); Creatinine Clearance Estimated 36 mL/min (50-200); Estimated Glomerular Filt Rate 59 ml/min (>60); GFR (African American) 71 ML/MIN (>60)
[2024-04-20 06:25] LABS: Albumin Level 3.5 g/dl (3.5-5.0); Albumin/Globulin Ratio 1.8 (1.1-1.8); Glucose 81 mg/dl (74-100); Magnesium 1.7 mg/dl (1.6-2.3); Total Protein,Serum 5.5 g/dl (6.3-8.2)
[2024-04-20 08:00] VITALS: BP 141/81; PULSE 70; RESP 16; TEMP 36.8; O2SAT 95
[2024-04-20] MEDS: IRBESARTAN 150MG TAB 150 MG PO (08:28)
[2024-04-20] MEDS: hydroCHLOROthiazide 25MG TABLET 12.5 MG PO (08:28)
[2024-04-20] MEDS: OXYBUTYNIN 5MG TAB 5 MG PO (08:28)
[2024-04-20] MEDS: MEMANTINE 10MG TABLET 10 MG PO (08:28)
[2024-04-20] MEDS: ENOXAPARIN 40MG/0.4ML SYRINGE 40 MG SQ (08:28)
--- NOTE | 2024-04-20 09:40 | HMH.OTEV ---
OT Inpatient Evaluation Rehab OT IP Evaluation Start: 04/20/24 07:21 Freq: ONCE Status: Active Protocol: Document 04/20/24 09:22 CAN (Rec: 04/20/24 09:39 [id number] Rehab OT IP Assessment Subjective History Pt is a 88yo F with PMHx of Alzheimer's dementia with behavioral disturbances, HTN, neurogenic bladder with urinary incontinence and recurrent UTI, brought in by caregiver to ED for evaluation of worsening behavioral disturbance. Patient alert and oriented to person only, not cooperative with the interview, there is not family available at the time of this assessment, therefore most of the history obtained by chart review and ED documentation. Patient has a longstanding history of dementia and has most recently been evaluated by neurology here at [facility] in November. Per ED. patient has had a cognitive decline with behavioral services such as asking where her is, asking to be taken home even though she is at her home etc. symptoms progressively worsened over the last week. Patient herself denies currently denies any symptoms including chest pain shortness of breath fever chills hemoptysis hematochezia melena nausea vomiting diarrhea but keeps asking to be taken home. Admitted for treatment and management on 04/19/2024. PLOF: Pt reported they were living with prior to being admitted. Pt was oriented x1. Pt demonstrated confusion when being interviewed for initial eval. Pt was unable to tell therapy about housing and if there were steps or mx levels. Pt reported they were not able to shower and dress self without assistance. Pt also could not report to therapy any equipment needed for functional mobiltiy task. No family was present to help give information on pt's PLOF during initial eval. Subjective I wish my family would get here. Pt was supine in bed when therapy entered room. Pt was agreeable to participate in intitial OT eval this morning. Pt agreed to sit on EOB. Pt went from supine to EOB with Min Assist. Pt sat on EOB for ~1 minute and demonstrated fair static sitting balance with CGA. Pt then completed a sit to stand transfer with Mod Assist x2. Pt was able to hold static standing balance for ~30 seconds before needing to sit back on EOB. Pt reported they wanted to lay back in bed. Pt went from EOB to supine in bed with Min Assist. Pt was left supine in bed with call light and allother needs within reach. Objective Patient Orientation Person Right Upper Extremity Gross ROM WFL Left Upper Extremity Gross ROM WFL Bed Mobility bed mobility-scooting,bed mobility - supine/sit Assist Level Minimal x 1 (25% assist) Transfer Training Sit/Stand Transfer Assist Level Moderate x 2 (50% assist) Decrease in Endurance Yes Rehab OT IP prob,goals,plan Problems Date of Evaluation: 04/20/24 OT IP Problems Bed Mobility,Transfers,Balance ,Self care,Safety Rehab Potential Rehab Potential Good Equipment Needs Assistive Devices Standard Walker Plan OT intervention Plan Bed Mobility,Transfers,Balance ,Self care,Safety,Therapeutic Exercise OT Plan Frequency Daily Duration LOS Discharge Goals Bed Mobility Ability Standby Assistance Sit to Stand Chair Transfer Ability Minimal x 1 (25% assist) Chair Transfer Ability Minimal x 1 (25% assist) Chair Transfer Technique Sit to/from Ambulatory Chair Transfer Assistive Devices Standard Walker Feeding Ability Assist with Tray Set Up Lower Body Dressing Ability Minimal Assistance Upper Body Dressing Ability Contact Guard Bathing Ability Moderate Assistance Performing Toilet Hygiene Ability Moderate Assistance Overall Commode/Toilet Transfer Ability Moderate Assistance Commode/Toilet Transfer Technique Sit to/from Ambulatory Decrease in Endurance No Discharge Plan OT Discharge Plan Pt will continue to be seen while at this facility to receive skilled OT services. At this time, it is recommended that pt receives placement to increase safety, endurance, and strength to acheive self-care and occupational success. If family is able to provide care and supervision, pt would be able to go home with home health to receive OT services. All pending medical status and dr. mayen. Mora Velazco Charge Codes 56289 - Moderate Complexity PHYSICIAN CERTIFICATION: I certify the specified therapy services for Jacki Wood are required, authorized, and reviewed every 30 days.
--- NOTE | 2024-04-20 09:40 | HMH.PTEV ---
Physical Therapy Evaluation Rehab PT IP Evaluation Start: 04/20/24 07:21 Freq: ONCE Status: Active Protocol: Document 04/20/24 09:36 MARC (Rec: 04/20/24 09:40 MARC [email or web address]) Subjective/History History History Per H&P: This a 88yo F with PMHx of Alzheimer's dementia with behavioral disturbances, HTN, neurogenic bladder with urinary incontinence and recurrent UTI, brought in by caregiver to ED for evaluation of worsening behavioral disturbance. Subjective Subjective Pt reports she thinks she lives with her . I know I have kids but I can't think of their names right now . Pt is pleasantly confused but agreeable to PT evaluation . New diagnosis of cancer in past 12 No months? Rehab PT IP Eval Objective Appearance Patient Behavior Confused Patient Orientation Person,Birthday Difficulty following instructions none Speech Pattern Clear Ambulation Patient Able to Ambulate No Balance Ability to Arise Able, uses arms to help Standing Balance Unsteady Transfers Bed Transfer Ability Moderate x 1 (50% assist) Sit to Stand Bed Transfer Ability Moderate x 2 (50% assist) Rehab PT IP prob,goals,plan Problems Date of Evaluation: 04/20/24 PT IP Problems Bed Mobility,Transfers,Gait, Balance,Self care,Safety Rehab Potential Rehab Potential Good Equipment Needs Assistive Devices Rolling / Wheeled Walker Plan PT Intervention Plan Bed Mobility,Transfers,Gait, Balance,Safety,Therapeutic Exercise Other Intervention Plan 1-2 times PT Plan Frequency Daily Duration LOS Discharge Goals Bed Transfer Ability Minimal x 1 (25% assist) Sit to Stand Chair Transfer Ability Minimal x 1 (25% assist) Discharge Plan PT Discharge Plan Initial physical therapy evaluation performed. Patient presents below baseline at this time in functional mobility, transfers, and strength. Pt not safe to return home at this time d/t current level of functional mobility. PT recommending short-term rehabilitation stay upon d/c from [facility]. If pt refusing or unable to d/c to rehab, pt may be safe to d/c home with HH and 24 hour assistance provided by . Pt would benefit from skilled PT while at [facility] to prevent further functional decline and maximize safety with mobility. Eval Complexity Eval Charge Codes 69584 - Moderate Complexity PHYSICIAN CERTIFICATION: I certify the specified therapy services for Jacki Adwoa Ecklar are required, authorized, and reviewed every 30 days.
--- NOTE | 2024-04-20 10:20 | EXP.DC.SUM ---
General Admission date:: 04/19/24 Discharge date: 04/20/24 HPI HPI HPI: This a 88yo F with PMHx of Alzheimer's dementia with behavioral disturbances, HTN, neurogenic bladder with urinary incontinence and recurrent UTI, brought in by caregiver to ED for evaluation of worsening behavioral disturbance. Patient alert and oriented to person only, not cooperative with the interview, there is not family available at the time of this assessment, therefore most of the history obtained by chart review and ED documentation. Patient has a longstanding history of dementia and has most recently been evaluated by neurology here at [facility] in November. Per ED. patient has had a cognitive decline with behavioral services such as asking where her is, asking to be taken home even though she is at her home etc. symptoms progressively worsened over the last week. Patient herself denies currently denies any symptoms including chest pain shortness of breath fever chills hemoptysis hematochezia melena nausea vomiting diarrhea but keeps asking to be taken home. Admitted for treatment and management Hospital Course Hospital Course Hospital Course: Mrs. Wood is an 88-year-old female with history of Alzheimer's dementia, behavioral disturbances, hypertension, neurogenic bladder and urinary incontinence with recurrent UTIs. She is brought to the ER for evaluation for worsening behavior with agitation and irritability. Workup concerning for UTI, encephalopathy. Discussed case with ER, request admission for further management. Showing some improvement by morning after getting some sleep. Urine culture growing gram-negative rods. Will transition oral antibiotics and discharge home to a familiar environment. Extensive conversation with caregivers about goals of care. Provided with [facility] to help problem discussion and assist with goals of care decisions as an outpatient. Stable to discharge home with family. Home health consulted. Problems addressed as follows: -Acute toxic encepahlopathy secondary to UTI: Recurrent UTI, Hx of Alzheimer dementia with behavioral disturbance aggravated. Patient admitted to medicine for further treatment of her UTI and confusion. Showing slight improvement by morning. Family she feels she is doing better but not quite back to baseline. Given her tolerance of p.o. intake, clinical stability, normal white count, and afebrile status, will transition oral antibiotics. Previous cultures positive for Morganella, Proteus, E. coli, Citrobacter, all sensitive to levofloxacin. Pathogens are resistant to Bactrim however which she is on at home as prophylaxis. Will discontinue Bactrim given her culture sensitivity profile and transition to methenamine hippurate twice daily for prophylactic treatment. Continue with home regimen of In-N-Out cathing. Stable to discharge home on Levaquin to complete antibiotic course. Urine culture growing gram-negative rods, awaiting final speciation and sensitivity. -History of urinary incontinence secondary to neurogenic bladder: Continue oxybutynin. Continue in and out cathing intermittently at home. Recommend follow-up with urology -Hypertension: Stable, continue home losartan. Insomnia/sleep disorder -Takes trazodone at home. Has not slept for the better part of the past 48 hours. Did well with Zyprexa during hospitalization. Will provide with short course of Zyprexa. Recommend resuming home regimen with trazodone, if not effective, may trial Zyprexa the next night to help with sleep. Recommend further discussion with PCP or neurologist about possible Orexin antagonists for treatment of her insomnia. Alzheimer's dementia -Complicates her care. Patient showing worsening agitation and worsening memory. Has been seen by neurology in the past and it her current stage, is on donepezil and memantine. No further workup per review of last documented visit with neurology. Family declined any further workup due to futility. Recommend goals of care discussions as patient's condition will continue to progress. She is already showing decreased p.o. intake. Provided with [facility] to assist with discussion on goals of care. Discharge home with home health. Total time spent on discharge 40 minutes in counseling, documentation, chart review, and direct care with patient. Exam Data for Last 24 hours Vital signs and Labs for Last 24 Hours: Temp Pulse Resp BP Pulse Ox O2 Del Method 98.3 F 70 16 141/81 H 95 Room Air 04/20/24 08:00 04/20/24 08:00 04/20/24 08:00 04/20/24 08:00 04/20/24 08:00 04/20/24 09:00 Laboratory Results - last 24 hr 04/19/24 17:35: WBC 7.1, RBC 3.66 L, Hgb 12.3, Hct 37.1, MCV 101.3 H, MCH 33.6 H, MCHC 33.2, RDW 14.2, Plt Count 171, MPV 8.5, Neut % (Auto) 75.9, Lymph % (Auto) 18.7, [place] % (Auto) 3.8, Eos % (Auto) 0.7, Baso % (Auto) 0.8, Neut # (Auto) 5.4, Lymph # (Auto) 1.3, [place] # (Auto) 0.3, Eos # (Auto) 0.1, Baso # (Auto) 0.1, Sodium 141, Potassium 3.7, Chloride 103, Carbon Dioxide 26, Anion Gap 15.7 H, BUN 15, Creatinine 0.70, Estimated Creat Clear 36, Estimated GFR 79, Est GFR ( Amer) 96, Glucose 109 H, Calcium 9.4, Magnesium 1.6, Total Bilirubin 1.2, AST 24, ALT 15, Alkaline Phosphatase 81, Total Protein 6.4, Albumin 4.2, Globulin 2.2, Albumin/Globulin Ratio 1.9 H 04/19/24 17:38: Urine Color Yellow, Urine Appearance Sl cloudy, Urine pH 7.5, Ur Specific [place] 1.020, Urine Protein Negative, Urine Glucose (UA) Negative, Urine Ketones 1+, Urine Blood Negative, Urine Nitrate Negative, Urine Bilirubin Negative, Urine Urobilinogen 1.0, Ur Leukocyte Esterase 3+ A, Urine RBC None, Urine WBC 5-10, Ur Squamous Epith Cells Occasional, Amorphous Sediment 1+, Urine Bacteria 2+ 04/20/24 05:46: WBC 7.3, RBC 3.43 L, Hgb 11.2 L, Hct 35.5 L, MCV 103.5 H, MCH 32.7 H, MCHC 31.6 L, RDW 14.2, Plt Count 162, MPV 9.1, Neut % (Auto) 61.6, Lymph % (Auto) 32.1, [place] % (Auto) 4.1, Eos % (Auto) 1.2, Baso % (Auto) 0.9, Neut # (Auto) 4.5, Lymph # (Auto) 2.3, [place] # (Auto) 0.3, Eos # (Auto) 0.1, Baso # (Auto) 0.1, Sodium 141, Potassium 3.5, Chloride 108 H, Carbon Dioxide 26, Anion Gap 10.5, BUN 15, Creatinine 0.90 D, Estimated Creat Clear 36, Estimated GFR 59, Est GFR ( Amer) 71 D, Glucose 81 D, Calcium 9.0, Magnesium 1.7, Total Bilirubin 1.2, AST 20, ALT 7 L D, Alkaline Phosphatase 69, Total Protein 5.5 L, Albumin 3.5 D, Globulin 2.0, Albumin/Globulin Ratio 1.8 I & O for Last 24 hours: Intake & Output 04/17/24 04/18/24 04/19/24 04/20/24 23:59 23:59 23:59 23:59 Intake Total 410 / 410 Output Total 0 / 0 100 / 100 Balance 0 / 170 310 / 310 Weight 56.047 kg 57.924 kg Microbiology Reports for the Last 24 Hours: Microbiology 04/19/24 17:38 Urine,Catheterized Urine Culture - Preliminary Gram Negative Rods Constitutional Constitutional: no acute distress, average body habitus, cooperative and agitated *Routine HEENT Exam Head: Present normocephalic Eye: Present EOMI and PERRL ENT: Present mucous membranes moist *Routine Neck Exam Neck: Present supple; Absent lymphadenopathy *Routine Respiratory Exam Respiratory: Present CTA bilaterally *Routine Cardiovascular Exam Cardiovascular: Present RRR *Routine Abdominal Exam Abdominal: Present soft and normoactive bowel sounds; Absent tenderness *Routine Rectal Exam Patient deferred: visual exam *Routine Exam Patient deferred: external exam *Routine Extremities Exam Extremities: Absent cyanosis, clubbing or edema *Routine Skin Exam Skin: Present warm; Absent rash *Routine Neurological Exam Neurological: Present alert and moving all extremities; Absent altered mental status Comments: Oriented to self, does not know birthday. States she is at the hospital. Asks the same questions repeatedly. Wants to know where her is. Does not know exactly why she is at the hospital. Routine Psychiatric Exam Comments: Mild agitation. Cooperative when redirected. More agitated with family then care team Results Data Completed and Pending Labs on day of discharge: Labs from last 24 hours 04/20/24 04/19/24 04/19/24 05:46 17:38 17:35 WBC 7.3 7.1 RBC 3.43 L 3.66 L Hgb 11.2 L 12.3 Hct 35.5 L 37.1 MCV 103.5 H 101.3 H MCH 32.7 H 33.6 H MCHC 31.6 L 33.2 RDW 14.2 14.2 Plt Count 162 171 MPV 9.1 8.5 Neut % (Auto) 61.6 75.9 Lymph % (Auto) 32.1 18.7 [place] % (Auto) 4.1 3.8 Eos % (Auto) 1.2 0.7 Baso % (Auto) 0.9 0.8 Neut # (Auto) 4.5 5.4 Lymph # (Auto) 2.3 1.3 [place] # (Auto) 0.3 0.3 Eos # (Auto) 0.1 0.1 Baso # (Auto) 0.1 0.1 Sodium 141 141 Potassium 3.5 3.7 Chloride 108 H 103 Carbon Dioxide 26 26 Anion Gap 10.5 15.7 H BUN 15 15 Creatinine 0.90 D 0.70 Estimated Creat Clear 36 36 Estimated GFR 59 79 Est GFR ( Amer) 71 D 96 Glucose 81 D 109 H Calcium 9.0 9.4 Magnesium 1.7 1.6 Total Bilirubin 1.2 1.2 AST 20 24 ALT 7 L D 15 Alkaline Phosphatase 69 81 Total Protein 5.5 L 6.4 Albumin 3.5 D 4.2 Globulin 2.0 2.2 Albumin/Globulin Ratio 1.8 1.9 H Urine Color Yellow Urine Appearance Sl cloudy Urine pH 7.5 Ur Specific [place] 1.020 Urine Protein Negative Urine Glucose (UA) Negative Urine Ketones 1+ Urine Blood Negative Urine Nitrate Negative Urine Bilirubin Negative Urine Urobilinogen 1.0 Ur Leukocyte Esterase 3+ A Urine RBC None Urine WBC 5-10 Ur Squamous Epith Cells Occasional Amorphous Sediment 1+ Urine Bacteria 2+ Preliminary micro results at discharge 04/19/24 17:38 Urine Culture - Preliminary Urine,Catheterized Gram Negative Rods DS: Diagnosis Discharge Diagnosis (1) Encephalopathy due to infection: Status: Acute Code(s): G93.49 - Other encephalopathy; B99.9 - Unspecified infectious disease (2) Urinary tract bacterial infections: Status: Acute Code(s): N39.0 - Urinary tract infection, site not specified; A49.9 - Bacterial infection, unspecified (3) Dementia with behavioral disturbance: Status: Acute Code(s): F03.918 - Unspecified dementia, unspecified severity, with other behavioral disturbance (4) Recurrent urinary tract infection: Status: Acute Code(s): N39.0 - Urinary tract infection, site not specified (5) Urinary incontinence in female: Status: Acute Code(s): R32 - Unspecified urinary incontinence (6) Neurogenic bladder: Status: Acute Code(s): N31.9 - Neuromuscular dysfunction of bladder, unspecified (7) Hypertension: Status: Acute Code(s): I10 - Essential (primary) hypertension Qualifiers: Hypertension type: unspecified Qualified Code(s): I10 - Essential (primary) hypertension Meds Home Medications and Allergies Home Medications Medication Instructions Recorded Confirmed Type oxybutynin chloride 15 mg 15 mg PO DAILY 11/08/22 04/20/24 History tablet,extended release 24 hr donepezil 10 mg tablet 10 mg PO HS memory 90 days #90 11/30/23 04/20/24 Rx tabs memantine 10 mg tablet 10 mg PO BID memory loss 90 days 11/30/23 04/20/24 Rx #180 tabs levofloxacin 750 mg tablet 750 mg PO DAILY 5 days #5 tabs 04/20/24 Rx losartan 100 mg tablet 100 mg PO DAILY 04/20/24 04/20/24 History methenamine hippurate 1 gram tablet 1 g PO BID 30 days #60 tabs 04/20/24 Rx olanzapine 5 mg disintegrating 5 mg sublingual HS PRN Insomnia 5 04/20/24 Rx tablet days #5 tabs trazodone 100 mg tablet 100 mg PO HS 04/20/24 04/20/24 History New Prescriptions to Start Prescriptions: Wilberto Mg methenamine hippurate Wolf,Wilberto Prasad Allergies Allergy/AdvReac Type Severity Reaction Status Date / Time No Known Allergies Allergy Verified 11/30/23 09:38 Discharge Plan Disposition Patient Disposition: Home Health Service Condition: Fair Discharge Order Discharge Orders: Discharge Order (Routine); Ordered 04/20/24 Ordered By: Wilberto Bloom Follow up Plan Follow up with: René Gamez MD [Primary Care Provider] - 04/25/24 1:00 pm Edwin Menjivar MD [Referring] - Enter time for follow up Prescriptions/Medication Reconciliation: New olanzapine 5 mg Tablet,Disintegrating 5 mg sublingual HS PRN (Reason: Insomnia) 5 Days Qty: 5 0RF methenamine hippurate 1 gram tablet 1 g PO BID 30 Days Qty: 60 0RF levofloxacin 750 mg tablet 750 mg PO DAILY 5 Days Qty: 5 0RF Continued donepezil 10 mg tablet 10 mg PO HS 90 Days Qty: 90 1RF memantine 10 mg tablet 10 mg PO BID 90 Days Qty: 180 1RF trazodone 100 mg tablet 100 mg PO HS losartan 100 mg tablet 100 mg PO DAILY oxybutynin chloride 15 mg tablet extended release 24hr 15 mg PO DAILY Discontinued sulfamethoxazole-trimethoprim 400-80 mg tablet 1 tab PO DAILY Problem Reconciliation Problems Reviewed?: Yes Patient Discharge Instructions ACTIVITY: Continue current activity DIET: continue same diet Patient Instructions: Urinary Tract Infection, DI for Urinary Tract Infection (UTI), Encephalopathy Providers Primary Care Provider: René Gamez Admit Provider: Wilberto Bloom Attending Provider: Wilberto Bloom
--- NOTE | 2024-04-20 11:43 | CARE MANAGER ---
Addendum entered by Ute Serrato RN 04/20/24 14:45: [facility]. Addendum entered by Ute Serrato RN 04/20/24 14:00: [facility] was unable to admit due to staffing. Information sent to [facility]. YAMEL Kim Original Note: PT/OT suggested rehab or home with home health and 24 hr assistance. Family is caring for patient and is present at all times. They decided to go home and requested [facility] for home health services. Information faxed. YAMEL Kim
--- NOTE | 2024-04-23 14:07 | CARE MANAGER ---
Patient readmitted to hospital before follow up call could be performed. YAMEL Kim
== END 2024-04-20 13:15 | disposition home health service (06) ==
LOC: ER 18:36 → 2ND 19:06
PROVIDERS: Physician Assistant; Admitting Provider Internal Medicine Adolescent Medicine; Emergency Provider Emergency Medicine; PCP Internal Medicine; Visit Provider Internal Medicine Adolescent Medicine
DX: N39.0 Urinary tract infection, site not specified (principal); G92.8 Other toxic encephalopathy; F02.818 Dementia in other diseases classified elsewhere, unspecified severity, with other behavioral disturbance; G30.9 Alzheimer's disease, unspecified; A49.9 Bacterial infection, unspecified; N31.9 Neuromuscular dysfunction of bladder, unspecified; I10 Essential (primary) hypertension; N39.498 Other specified urinary incontinence; Z79.899 Other long term (current) drug therapy
CPT/HCPCS: 36415; 80053; 81001; 83735; 85025; 87086; 87088; 87186; 97162; 97166; 99285; G0378; J0696

== ENCOUNTER 2024-04-21 15:30 | Observation (INO) | payer MEDICARE, SELFPAY ==
[2024-04-21 15:31] VITALS: BP 138/101; PULSE 117; RESP 18; O2SAT 97; BMI 25.4
[2024-04-21 15:42] VITALS: BP 138/101; PULSE 119; O2SAT 95
[2024-04-21 15:43] VITALS: BP 141/93; PULSE 120; O2SAT 96
--- NOTE | 2024-04-21 15:45 | XR_ITS ---
PROCEDURE INFORMATION: Exam: XR Chest Exam date and time: 04/21/2024 4:09 PM Age: 88 years old Clinical indication: Other: AMS TECHNIQUE: Imaging protocol: Radiologic exam of the chest. Views: 1 view. COMPARISON: No relevant prior studies available. FINDINGS: Lungs: Unremarkable. No consolidation. Pleural spaces: Unremarkable. No pleural effusion. No pneumothorax. Heart/Mediastinum: Unremarkable. No cardiomegaly. Bones/joints: Anterior cervical fusion Intraperitoneal space: Surgical clips in the right upper quadrant of the abdomen IMPRESSION: No acute process
--- NOTE | 2024-04-21 15:52 | PC.NURSE ---
spoke with [facility] who states they are not currently accepting any new patients for [facility] @ this time
[2024-04-21] MEDS: LACTATED RINGERS 1000ML 1,000 ML 999 ML IV (16:06)
[2024-04-21] MEDS: CEFTRIAXONE SODIUM 1 GM in 0.9 % SODIUM CHLORIDE 50 ML IV (16:06)
--- NOTE | 2024-04-21 16:08 | ED_ITS ---
Discharge Plan Disposition Patient Disposition: Admitted Condition: Undetermined Clinical Impressions Clinical Impression: Dementia with psychotic disturbance, Acute UTI, Delirium secondary to multiple medical problems Discharge ED Provider: Vishal Jimenez General Adult HPI General Chief complaint: Altered Mental Status Stated complaint: UTI,Talking out of head Time Seen by Provider: 04/21/24 15:39 Mode of Arrival: Wheelchair Source of Information: Spouse Limitations: No Limitations Description of Symptoms (Recalled from ER Triage Doc. by RN): States the patient was discharged from this hospital yesterday related to UTI. States that the patient won't take her medication, hasn't slept, and has been more agitated. Patient is yelling and cussing staff and family at this time. History of Present Illness HPI narrative: Please note that above description of symptoms, in this electronic medical record under categorization of recalled from ER triage doctor by RN are reflective of an initial nursing assessment, however, is not reflective of my full history and physical exam that was personally taken and clarified. Consequentially, this preceding description of symptoms, which may include the patient's categorized chief complaint in the EMR, do not reflect my personal clinical impression, and the ultimate description of history of present illness and patient stated complaints should be deferred to this section of the note. Unless stated otherwise or congruent with this section of the note, additional signs, symptoms, or incongruence should be interpreted as inaccurate with my clinical impression. Related Data Home Medications Medication Instructions Recorded Confirmed oxybutynin chloride 15 mg 15 mg PO DAILY 11/08/22 04/21/24 tablet,extended release 24 hr Previous Rx's Medication Instructions Recorded methenamine hippurate 1 gram tablet 1 g PO BID 30 days #60 tabs 04/20/24 citalopram 10 mg tablet 10 mg PO DAILY 30 days #30 tabs 04/23/24 doxycycline hyclate 100 mg capsule 100 mg PO BID 5 days #10 caps 04/23/24 lorazepam 0.5 mg tablet (Ativan) 0.5 mg PO Q4H PRN anxiety 5 days 04/23/24 #30 tabs memantine 10 mg tablet 10 mg PO BID memory loss 90 days 04/23/24 #180 tabs morphine concentrate 100 mg/5 mL 5 mg (0.25 mL) PO Q4H PRN pain #30 04/23/24 (20 mg/mL) oral solution mL olanzapine 5 mg disintegrating See Rx Instructions .Route 04/23/24 tablet .COMPLEX Insomnia #90 tabs Allergies Allergy/AdvReac Type Severity Reaction Status Date / Time No Known Allergies Allergy Verified 11/30/23 09:38 [facility] Disclaimer: The information contained in this section may have been updated after the patient was seen, as this information can be updated by other users. Medical History Memory change History of cataract History of arthritis History of kidney stones Hypertension Neurogenic bladder Back pain with history of spinal surgery UTI (urinary tract infection) Surgical History History of cataract surgery History of total knee replacement History of discectomy Family History Cancer Hypertension Stroke Social History Smoking Status: Never smoker alcohol intake: never substance use type: denies use current occupational status: retired and disabled Travel in the last 8 weeks: None household members: spouse housing: house ROS Obtained: Yes unobtainable due to mental status Physical Exam General General appearance: alert, in no apparent distress and other (Screaming profanities, obviously confused, agitated) Head Head exam: atraumatic and normocephalic Eye Eye exam: Present normal appearance, PERRL and EOMI ENT ENT exam: Present mucous membranes dry Neck Neck exam: Present normal inspection, full ROM and trachea midline Respiratory Respiratory exam: Absent respiratory distress, wheezes, stridor, accessory muscle use or prolonged expiratory phase Cardiovascular Cardiovascular exam: Present regular rate and normal rhythm Abdominal Exam Abdominal exam: Present soft; Absent distention, tenderness, guarding, rebound or rigidity Neurological Exam Neurological exam: Present alert Psychiatric Psychiatric exam: Present agitated Skin Skin exam: Present warm and dry; Absent diaphoresis or erythema Medical Decision Making Medical Records Medical records reviewed: Yes I reviewed the patient's medical records. Alpesh Inquiry Pt receiving controlled substance: No Alpesh was queried for this patient: No Vital Signs: 04/21/24 15:31 04/21/24 15:42 04/21/24 15:43 Temperature Temperature Source Pulse Rate 119 H 120 H Pulse Rate [Radial] 117 H Respiratory Rate 18 Blood Pressure 138/101 H 141/93 H Blood Pressure [Right Arm] 138/101 H Blood Pressure Mean [Right Arm] 113 Blood Pressure Source Blood Pressure Source [Right Arm] Automatic Cuff Blood Pressure Position Blood Pressure Position [Right Arm] Sitting 02 Sat by Pulse Oximetry 97 95 96 Oxygen Delivery Method Room Air 04/21/24 19:43 04/21/24 20:00 04/21/24 20:17 Temperature 97.0 F L 96.2 F L Temperature Source Axillary Axillary Pulse Rate 76 Pulse Rate [Radial] 74 Respiratory Rate 17 20 Blood Pressure 148/75 H Blood Pressure [Right Arm] 119/64 Blood Pressure Mean [Right Arm] 82 Blood Pressure Source Automatic Cuff Blood Pressure Source [Right Arm] Automatic Cuff Blood Pressure Position Supine Blood Pressure Position [Right Arm] 02 Sat by Pulse Oximetry 96 Oxygen Delivery Method Room Air Room Air Room Air Lab Data Lab Results 04/21/24 16:00: WBC 10.0 D, RBC 4.15 L, Hgb 13.6, Hct 41.4, MCV 99.6 H, MCH 32.7 H, MCHC 32.8, RDW 14.1, Plt Count 218 D, MPV 8.1, Neut % (Auto) 76.9, Lymph % (Auto) 17.8, [place] % (Auto) 4.3, Eos % (Auto) 0.3, Baso % (Auto) 0.7, Neut # (Auto) 7.7, Lymph # (Auto) 1.8, [place] # (Auto) 0.4, Eos # (Auto) 0.0, Baso # (Auto) 0.1, Sodium 141, Potassium 4.2, Chloride 104, Carbon Dioxide 25, Anion Gap 16.2 H, BUN 15, Creatinine 1.00, Estimated Creat Clear 36, Estimated GFR 52 L, Est GFR ( Amer) 63, Glucose 128 H, Calcium 10.0, Total Bilirubin 1.1, AST 24, ALT 15 D, Alkaline Phosphatase 88, Total Protein 7.0 D, Albumin 4.5 D , Globulin 2.5, Albumin/Globulin Ratio 1.8 04/22/24 06:35 04/22/24 06:35 Orders (Tests/Meds): ED MEDICATIONS Discontinued Medications Generic Name Dose Route Start Last Admin Trade Name Freq PRN Reason Stop Dose Admin Hydrocodone Bitart/Acetaminophen 1 tab 04/22/24 11:09 04/22/24 11:13 Hydrocodone/Apap 5/325 Mg Tablet PO 05/22/24 11:08 1 tab Q6HP PRN Administration Moderate to Severe Pain (4-10) Ceftriaxone Sodium 1 gm 04/22/24 17:00 04/23/24 14:52 Ceftriaxone 1gm Vial IM 04/25/24 17:01 1 gm Q24H JOCELIN Administration Citalopram Hydrobromide 10 mg 04/22/24 09:00 04/23/24 09:31 Citalopram 10mg Tablet PO 05/22/24 08:59 Not Given DAILY JOCELIN Donepezil HCl 10 mg 04/21/24 21:00 04/21/24 21:17 Donepezil 10mg Tab PO 05/21/24 20:59 Not Given HS JOCELIN Lactated Ringer's 1,000 mls @ 999 mls/hr 04/21/24 15:45 04/21/24 16:06 Lactated Ringer's 1000 Ml Bag IV 04/21/24 16:45 999 mls/hr .Q1H1M ONE Administration Ceftriaxone Sodium 1 gm/ 50 mls @ 100 mls/hr 04/21/24 15:48 04/21/24 16:06 Sodium Chloride IV 04/21/24 16:17 100 mls/hr ONCE ONE Administration Ceftriaxone Sodium 1 gm/ 50 mls @ 100 mls/hr 04/22/24 17:00 Sodium Chloride IV 05/02/24 16:59 Q24H JOCELIN Irbesartan 150 mg 04/22/24 09:00 04/23/24 09:31 Irbesartan 150mg Tab PO 05/22/24 08:59 Not Given DAILY JOCELIN Lorazepam 0.5 mg 04/22/24 13:44 Lorazepam 2mg/Ml Vial IM 05/22/24 13:43 Q6HP PRN Agitation Memantine 10 mg 04/21/24 21:00 04/23/24 09:31 Memantine 10mg Tablet PO 05/21/24 20:59 Not Given BID JOCELIN Olanzapine 2.5 mg 04/21/24 16:06 04/21/24 16:09 Olanzapine 10 Mg Vial IM 2.5 mg Q2HP PRN Administration Agitation Olanzapine 5 mg 04/21/24 21:00 04/21/24 21:11 Olanzapine 10 Mg Vial IM 04/22/24 21:01 5 mg BID JOCELIN Administration Olanzapine 7.5 mg 04/22/24 21:00 Olanzapine 10 Mg Vial IM 05/22/24 20:59 HS JOCELIN Olanzapine 2.5 mg 04/22/24 09:00 04/22/24 08:49 Olanzapine 10 Mg Vial IM 05/22/24 08:59 2.5 mg DAILY JOCELIN Administration Olanzapine 10 mg 04/22/24 21:00 04/22/24 20:08 Olanzapine 10 Mg Vial IM 05/22/24 20:59 10 mg HS JOCELIN Administration Olanzapine 5 mg 04/23/24 09:00 04/23/24 08:37 Olanzapine 10 Mg Vial IM 05/23/24 08:59 5 mg DAILY JOCELIN Administration Oxybutynin Chloride 5 mg 04/21/24 21:00 04/23/24 12:27 Oxybutynin 5mg Tab PO 05/21/24 20:59 Not Given TID JOCELIN ORDERS Category Date Time Status Behavioral Health Consult [Consult to Behavioral Health Cons 04/21/24 19:21 Active ] [CONS] Routine XR chest portable Stat Exams 04/21/24 15:45 Completed Complete Blood Count Auto Diff [facility] Lab 04/22/24 06:35 Completed Complete Blood Count Auto Diff Stat Lab 04/21/24 16:00 Completed Comprehensive Metabolic Panel [facility] Lab 04/22/24 06:35 Completed Comprehensive Metabolic Panel Stat Lab 04/21/24 16:00 Completed Magnesium [facility] Lab 04/22/24 06:35 Completed Medical Decision Narrative: This is a 8-year-old female with history of rapidly progressive dementia with psychotic disturbances, hypertension, hyper anemia, neurologic bladder or on oxybutynin, UTIs with infectious delirium presenting with progressive decline, failure of outpatient management, dehydration, agitation. Patient was seen couple days prior to this in the emergency department, admitted for IV antibiotics. Patient was able to sleep using antidopaminergic drugs, UTI was treated, on day of discharge, patient was pleasant, oriented to person, better, per family and provider. This was yesterday. Today, family states that patient has not taken any of her p.o. meds, has been biting them when they offer her food, drink, medicines, spitting out medicines, trying to destroy medicines, agitated, screaming profanities, they are unable to help her or take care of her at home. States that she only slept 4 to 5 hours last night into this morning and was up screaming the rest of the night. History was obtained via conversation with patient's family. On arrival, patient hemodynamically stable, alert, not oriented at all screaming profanities, inappropriate, agitated GCS 15, moving all extremities spontaneously, pupils equal and reactive to light. Full physical exam performed and significant for agitated, confused, angry patient screaming profanities. Cardiopulmonary exam within normal limits within bounds of physical exam. Abdomen does not appear to be tender. Afebrile. Differential includes progressive dementia, infectious delirium, metabolic disturbance, endocrinologic disturbance, UTI/pneumonia, sepsis, among others. Patient was given 2.5 mg Zyprexa IM, 1 L fluids, 1 g ceftriaxone IV for symptomatic management[ and correction of underlying abnormalities]. Workup independently interpreted and significant for no leukocytosis, but white count increased to 10.0 from7.3 just yesterday. Nonactionable chemistry, glucose 128. Urinalysis from 2 days prior, which is incompletely treated with leukocyte Estrace, bacteria, but no blood or protein. Repeat UA was considered, but given difficulty of patient interaction, I felt that relying on urinalysis from 2 days prior was clinically acceptable and holding patient down for repeat catheterization was not appropriate or humane. [facility] was contacted for geriatric psychiatric placement, they do not have any availability for beds. [facility] was contacted and case was discussed at length for admission for psychiatric stabilization and treatment of UTI concurrently -concern for dementia with psychiatric disturbance, progressive dementia, UTI with infectious delirium. Some behavioral health declined. Ultimately, patient mated to hospital medicine for further definitive management. Tailer Out disclaimer Much of this encounter note is an electronic sport shoe spike assembler spoken language to printed text. Electronic sport shoe spike assembler of the spoken language may permit errors. Although I have reviewed the note, some errors may still exist. Critical Care Critical Care Time Critical Care Time: No
[2024-04-21] MEDS: OLANZapine 10 MG VIAL 2.5 MG IM (16:09)
[2024-04-21 16:13] LABS: Basophils # 0.1 K/mm3 (0-0.2); Basophils % 0.7 % (0.1-2.0); Eosinophils % 0.3 % (0.1-12.0); Hematocrit 41.4 % (37.0-47.0); Hemoglobin 13.6 g/dL (12.2-16.2); Lymphocytes # 1.8 K/mm3 (0.7-4.5); Lymphocytes % 17.8 % (10-50); Mean Corpuscular HGB Conc 32.8 g/dL (31.8-35.4); Mean Corpuscular Hemoglobin 32.7 pg (27.0-31.2); Mean Corpuscular Volume 99.6 fl (81-99); Mean Platelet Volume 8.1 fl (7.4-10.4); Monocytes # 0.4 K/mm3 (0.1-1.0); Monocytes % 4.3 % (1.7-9.3); Neutrophils # 7.7 K/mm3 (1.8-7.8); Neutrophils % 76.9 % (37.0-80.0); Platelet Count 218 K/mm3 (142-424); Red Blood Count 4.15 M/mm3 (4.20-5.40); Red Cell Distribution Width 14.1 % (11.5-17.5)
[2024-04-21 16:15] LABS: Chloride 104 mmol/L (98-107); Potassium 4.2 mmoL/L (3.5-5.1); Sodium 141 mmol/L (136-145)
[2024-04-21 16:17] LABS: Blood Urea Nitrogen 15 mg/dl (7-17); Creatinine Clearance Estimated 36 mL/min (50-200); Estimated Glomerular Filt Rate 52 ml/min (>60); GFR (African American) 63 ML/MIN (>60)
[2024-04-21 16:18] LABS: Alanine Aminotransferase 15 U/L (12-78); Albumin Level 4.5 g/dl (3.5-5.0); Albumin/Globulin Ratio 1.8 (1.1-1.8); Alkaline Phosphatase 88 U/L (38-126); Anion Gap 16.2 mEq/L (5-15); Aspartate Amino Transferase 24 U/L (14-36); Bilirubin,Total 1.1 mg/dl (0.2-1.3); Carbon Dioxide 25 mmol/L (22.0-30.0); Globulin 2.5 g/dL (1.3-3.2); Glucose 128 mg/dl (74-100)
--- NOTE | 2024-04-21 16:49 | PC.NURSE ---
called [facility] [place] for possible transfer to there facility
--- NOTE | 2024-04-21 18:08 | PC.NURSE ---
calling [facility] for an update and make sure fax was received
--- NOTE | 2024-04-21 18:11 | PC.NURSE ---
[facility] states they received all documents faxed and soon as it was discussed with a provider they would give us a call back
--- NOTE | 2024-04-21 18:28 | EXP.MED.CON ---
History of Present Illness *Admission Date: 04/21/24 *Reason for visit:: Seen in the ER for agitation and behavioral disturbance in the setting of [facility] Disclaimer: The information contained in this section may have been updated after the patient was seen, as this information can be updated by other users. Medical History Memory change History of cataract History of arthritis History of kidney stones Hypertension Neurogenic bladder Back pain with history of spinal surgery UTI (urinary tract infection) Surgical History History of cataract surgery History of total knee replacement History of discectomy Family History Cancer Hypertension Stroke Social History Smoking Status: Never smoker alcohol intake: never substance use type: denies use current occupational status: retired and disabled Travel in the last 8 weeks: None household members: spouse housing: house Review of Systems Review of Systems Review of systems (narrative): 14 point review of systems performed, pertinent positives and negatives as per HPI, obtained from at bedside Exam Data for Last 24 hours Vital signs and Labs for Last 24 Hours: Pulse Resp BP Pulse Ox O2 Del Method 119 H 18 138/101 H 95 Room Air 04/21/24 15:42 04/21/24 15:31 04/21/24 15:42 04/21/24 15:42 04/21/24 15:31 Laboratory Results - last 24 hr 04/21/24 16:00: WBC 10.0 D, RBC 4.15 L, Hgb 13.6, Hct 41.4, MCV 99.6 H, MCH 32.7 H, MCHC 32.8, RDW 14.1, Plt Count 218 D, MPV 8.1, Neut % (Auto) 76.9, Lymph % (Auto) 17.8, [place] % (Auto) 4.3, Eos % (Auto) 0.3, Baso % (Auto) 0.7, Neut # (Auto) 7.7, Lymph # (Auto) 1.8, [place] # (Auto) 0.4, Eos # (Auto) 0.0, Baso # (Auto) 0.1, Sodium 141, Potassium 4.2, Chloride 104, Carbon Dioxide 25, Anion Gap 16.2 H, BUN 15, Creatinine 1.00, Estimated Creat Clear 36, Estimated GFR 52 L, Est GFR ( Amer) 63, Glucose 128 H, Calcium 10.0, Total Bilirubin 1.1, AST 24, ALT 15 D, Alkaline Phosphatase 88, Total Protein 7.0 D, Albumin 4.5 D, Globulin 2.5, Albumin/Globulin Ratio 1.8 I & O for Last 24 hours: Intake & Output 04/18/24 04/19/24 04/20/24 04/21/24 23:59 23:59 23:59 23:59 Weight 58.967 kg Constitutional Constitutional: no acute distress, average body habitus, chronically ill appearing, combative and agitated *Routine HEENT Exam Head: Present normocephalic Eye: Present EOMI and PERRL ENT: Present mucous membranes moist *Routine Neck Exam Neck: Present supple; Absent lymphadenopathy *Routine Respiratory Exam Respiratory: Present CTA bilaterally *Routine Cardiovascular Exam Cardiovascular: Present RRR *Routine Abdominal Exam Abdominal: Present soft and normoactive bowel sounds; Absent tenderness *Routine Rectal Exam Patient deferred: visual exam *Routine Exam Patient deferred: external exam *Routine Extremities Exam Extremities: Absent cyanosis, clubbing or edema *Routine Skin Exam Skin: Present warm; Absent rash *Routine Neurological Exam Neurological: Present alert and moving all extremities; Absent altered mental status Comments: Oriented to self, combative on exam. Routine Psychiatric Exam Psychiatric: Present agitated and paranoid; Absent normal thought process, cooperative, good insight or good judgment Meds Home Medications and Allergies Home Medications Medication Instructions Recorded Confirmed Type oxybutynin chloride 15 mg 15 mg PO DAILY 11/08/22 04/20/24 History tablet,extended release 24 hr donepezil 10 mg tablet 10 mg PO HS memory 90 days #90 11/30/23 04/20/24 Rx tabs memantine 10 mg tablet 10 mg PO BID memory loss 90 days 11/30/23 04/20/24 Rx #180 tabs losartan 100 mg tablet 100 mg PO DAILY 04/20/24 04/20/24 History methenamine hippurate 1 gram tablet 1 g PO BID 30 days #60 tabs 04/20/24 Rx olanzapine 5 mg disintegrating 5 mg sublingual HS PRN Insomnia 5 04/20/24 Rx tablet days #5 tabs trazodone 100 mg tablet 100 mg PO HS 04/20/24 04/20/24 History doxycycline hyclate 100 mg capsule 100 mg PO BID 7 days #14 caps 04/21/24 Rx New Prescriptions to Start Prescriptions: Allergies Allergy/AdvReac Type Severity Reaction Status Date / Time No Known Allergies Allergy Verified 11/30/23 09:38 Results Labs 04/21/24 16:00 04/21/24 16:00 Labs: Abnormal lab results 04/21/24 Range/Units 16:00 RBC 4.15 L (4.20-5.40) M/mm3 MCV 99.6 H (81-99) fl MCH 32.7 H (27.0-31.2) pg Anion Gap 16.2 H (5-15) mEq/L Estimated GFR 52 L (>60) ml/min Glucose 128 H (74-100) mg/dl H & H 04/21/24 Range/Units 16:00 Hgb 13.6 (12.2-16.2) g/dL Hct 41.4 (37.0-47.0) % All other labs normal. Assessment and Plan *Assessment and plan (1) Dementia with psychotic disturbance: Status: Acute Category: Medical Code(s): F03.92 - Unspecified dementia, unspecified severity, with psychotic disturbance (2) Acute UTI: Status: Acute Category: Medical Code(s): N39.0 - Urinary tract infection, site not specified (3) Delirium secondary to multiple medical problems: Status: Acute Category: Medical Code(s): F05 - Delirium due to known physiological condition (4) Neurogenic bladder: Status: Acute Category: Medical Code(s): N31.9 - Neuromuscular dysfunction of bladder, unspecified (5) Recurrent urinary tract infection: Status: Acute Category: Medical Code(s): N39.0 - Urinary tract infection, site not specified (6) Urinary incontinence in female: Status: Acute Category: Medical Code(s): R32 - Unspecified urinary incontinence (7) Hypertension: Status: Acute Qualifiers: Hypertension type: unspecified Qualified Code(s): I10 - Essential (primary) hypertension Category: Medical Code(s): I10 - Essential (primary) hypertension Plan 88-year-old female who was just discharged yesterday for UTI. Has dementia with worsening aggression towards family. Patient is refusing to eat and take medications at home. Was brought to the ER for evaluation. Patient is alert to self. Showing symptoms of paranoia that is cheating on her. Does not recall being at the hospital and discharged yesterday. Is distrustful of entire care team at this time. Sleep disturbance last night. Medicine was consulted to evaluate. It is my recommendation that she be transferred to a geriatric psych facility for further management. I do not believe that her UTI is the sole cause of her change in agitation and personality. She has been having changes for several weeks with further discussion with . Worse more acutely. Progressed after moving in with son and [id number] a week ago. While she has a UTI it is being treated appropriately. Has normal white count, no fever. Has had decreased p.o. intake for a few weeks. Metabolic labs normal. Given 2.5 mg of olanzapine in the ER. Would recommend discontinuing her trazodone, initiating 5 mg of olanzapine twice daily. Will continue memantine and donepezil. Needs further eval with psychiatry. Patient was referred to [facility] further geriatric psych facility, there were no beds at this time. [facility] has been contacted, currently reviewing patient's case. If unable to transfer, necessitating admission. Will necessitate one-on-one sitter due to aggression and risk for exiting the bed and self-harm, high fall risk. In regard to UTI: Patient grew Enterobacter with intermediate sensitivity to Levaquin, resistance to Bactrim, sensitive to doxycycline and ceftriaxone. Received 1 dose of ceftriaxone in the ER. Doxycycline was called in for administration at home earlier today but patient spit out pills. Would rec and 5 days IM/IV ceftriaxone 1 g daily. White cell count normal. No signs of systemic infection or concern for sepsis. Would resume methenamine hippurate after completion of ceftriaxone as preventative/prophylaxis against further UTIs.
--- NOTE | 2024-04-21 19:10 | P.HP_ITS ---
History of Present Illness *Admission Date: 04/21/24 *Reason for visit:: Agitation, aggressive behavior. UTI *History of present illness: Ms. Wood is an 88-year-old female who was just discharged yesterday with improved mentation and treatment for UTI. She has a history significant for progressive dementia, behavioral disturbance, hypertension, neurogenic bladder, recurrent UTIs, and decreasing p.o. intake. She presented on because of confusion that have been going on for over a week. Son was asked to take care of her because her could no longer care for her at home due to her aggression toward him and her confusion. Because of her recurring UTIs, she had initially been brought in for evaluation. Found to have UTI and was initiated on treatment. Due to improved mentation yesterday morning, patient was discharged home on oral antibiotics to complete treatment. Last night she took her 200 mg of trazodone, slept for 3 to 4 hours and woke up at approximately 1 this morning irritable and aggressive toward family and caregivers. Has been refusing her medications, refusing to eat and drink, verbally braiding and aggressive with family. Due to her intolerance of medications, they brought her to the ER today for further evaluation. She has been spitting out her meds, screaming profanities at family and staff since arriving to the hospital. Family states they are unable to care for her in her current state at home. On evaluation, she is agitated and aggressive but alert and oriented to self. Afebrile. Hemodynamically stable. Labs unremarkable. Urine culture from yesterday grew Enterobacter cloacae sensitive to ceftriaxone, received 1 g IV in the ER. Multiple attempts made to transfer patient to geriatric psych facility. Turndown by [facility] and [facility]. Medicine consulted for admission and further management of her dementia with psychiatric disturbance. On evaluation in the ER, patient was verbally aggressive with me. Told me to get out of the room. Told me I was lying about her being here yesterday. Shows distrust and paranoia and her . Does not recognize her daughters. Stable on room air. In worsening level of agitation compared to yesterday when she was pleasant and oriented to self and not cussing out staff prior to discharging home [facility] Disclaimer: The information contained in this section may have been updated after the patient was seen, as this information can be updated by other users. Medical History Memory change History of cataract History of arthritis History of kidney stones Hypertension Neurogenic bladder Back pain with history of spinal surgery UTI (urinary tract infection) Surgical History History of cataract surgery History of total knee replacement History of discectomy Family History Cancer Hypertension Stroke Social History Smoking Status: Never smoker alcohol intake: never substance use type: denies use current occupational status: retired and disabled Travel in the last 8 weeks: None household members: spouse housing: house Review of Systems Review of Systems Review of systems (narrative): 14 point review of systems performed, pertinent positives and negatives as per HPI, obtained from Meds Home Medications and Allergies Home Medications Medication Instructions Recorded Confirmed Type oxybutynin chloride 15 mg 15 mg PO DAILY 11/08/22 04/20/24 History tablet,extended release 24 hr donepezil 10 mg tablet 10 mg PO HS memory 90 days #90 11/30/23 04/20/24 Rx tabs memantine 10 mg tablet 10 mg PO BID memory loss 90 days 11/30/23 04/20/24 Rx #180 tabs losartan 100 mg tablet 100 mg PO DAILY 04/20/24 04/20/24 History methenamine hippurate 1 gram tablet 1 g PO BID 30 days #60 tabs 04/20/24 Rx olanzapine 5 mg disintegrating 5 mg sublingual HS PRN Insomnia 5 04/20/24 Rx tablet days #5 tabs trazodone 100 mg tablet 100 mg PO HS 04/20/24 04/20/24 History doxycycline hyclate 100 mg capsule 100 mg PO BID 7 days #14 caps 04/21/24 Rx New Prescriptions to Start Prescriptions: Allergies Allergy/AdvReac Type Severity Reaction Status Date / Time No Known Allergies Allergy Verified 11/30/23 09:38 Exam Data for Last 24 hours Vital signs and Labs for Last 24 Hours: Pulse Resp BP Pulse Ox O2 Del Method 120 H 18 141/93 H 96 Room Air 04/21/24 15:43 04/21/24 15:31 04/21/24 15:43 04/21/24 15:43 04/21/24 15:31 Laboratory Results - last 24 hr 04/21/24 16:00: WBC 10.0 D, RBC 4.15 L, Hgb 13.6, Hct 41.4, MCV 99.6 H, MCH 32.7 H, MCHC 32.8, RDW 14.1, Plt Count 218 D, MPV 8.1, Neut % (Auto) 76.9, Lymph % (Auto) 17.8, [place] % (Auto) 4.3, Eos % (Auto) 0.3, Baso % (Auto) 0.7, Neut # (Auto) 7.7, Lymph # (Auto) 1.8, [place] # (Auto) 0.4, Eos # (Auto) 0.0, Baso # (Auto) 0.1, Sodium 141, Potassium 4.2, Chloride 104, Carbon Dioxide 25, Anion Gap 16.2 H, BUN 15, Creatinine 1.00, Estimated Creat Clear 36, Estimated GFR 52 L, Est GFR ( Amer) 63, Glucose 128 H, Calcium 10.0, Total Bilirubin 1.1, AST 24, ALT 15 D, Alkaline Phosphatase 88, Total Protein 7.0 D, Albumin 4.5 D , Globulin 2.5, Albumin/Globulin Ratio 1.8 I & O for Last 24 hours: Intake & Output 04/18/24 04/19/24 04/20/24 04/21/24 23:59 23:59 23:59 23:59 Weight 58.967 kg Constitutional Constitutional: mild distress, average body habitus, chronically ill appearing, combative and agitated *Routine HEENT Exam Head: Present normocephalic Eye: Present EOMI and PERRL ENT: Present mucous membranes moist *Routine Neck Exam Neck: Present supple; Absent lymphadenopathy *Routine Respiratory Exam Respiratory: Present CTA bilaterally; Absent rhonchi, wheezes or crackles *Routine Cardiovascular Exam Cardiovascular: Present RRR *Routine Abdominal Exam Abdominal: Present soft and normoactive bowel sounds; Absent tenderness *Routine Rectal Exam Rectal:: deferred *Routine Genitalia Exam Genitalia:: deferred *Routine Extremities Exam Extremities: Absent cyanosis, clubbing or edema *Routine Skin Exam Skin: Present warm; Absent rash *Routine Neurological Exam Neurological: Present alert, oriented X3, altered mental status and moving all extremities Comments: Oriented to self only, does not know she is at the hospital. Does not remember seeing me yesterday or being discharged yesterday. Thinks her daughter is her 's girlfriend Routine Psychiatric Exam Psychiatric: Present agitated and paranoid; Absent normal thought process, cooperative or good judgment Comments: Refuses to answer questions. States she was not at the hospital yesterday, uses numerous expletives. Ordered care team to get out of the room. Accuses of lying as well as myself about where she is and why. Accused the of cheating on her and not caring for her. Is clearly agitated, confused, showing aggressive behavior Assessment and Plan *Assessment and plan (1) Dementia with psychotic disturbance: Status: Acute Category: Medical Code(s): F03.92 - Unspecified dementia, unspecified severity, with psychotic disturbance (2) Acute UTI: Status: Acute Category: Medical Code(s): N39.0 - Urinary tract infection, site not specified (3) Neurogenic bladder: Status: Acute Category: Medical Code(s): N31.9 - Neuromuscular dysfunction of bladder, unspecified (4) Memory loss: Status: Chronic Category: Medical Code(s): R41.3 - Other amnesia (5) Hypertension: Status: Acute Qualifiers: Hypertension type: unspecified Qualified Code(s): I10 - Essential (primary) hypertension Category: Medical Code(s): I10 - Essential (primary) hypertension Plan 88-year-old female who was just discharged yesterday for UTI. Has dementia with worsening aggression towards family. Patient is refusing to eat and take medications at home. Was brought to the ER for evaluation. Patient is alert to self. Showing symptoms of paranoia that is cheating on her. Does not recall being at the hospital and discharged yesterday. Is distrustful of entire care team at this time. Sleep disturbance last night. Medicine was consulted to evaluate. It is my recommendation that she be transferred to a geriatric psych facility for further management. I do not believe that her UTI is the sole cause of her change in agitation and personality. She has been having changes for several weeks with further discussion with . Worse more acutely. Progressed after moving in with son and [id number] a week ago. While she has a UTI it is being treated appropriately. Has normal white count, no fever. Has had decreased p.o. intake for a few weeks. Metabolic labs normal. Given 2.5 mg of olanzapine in the ER. Would recommend discontinuing her trazodone, initiating 5 mg of olanzapine twice daily. Will continue memantine and donepezil. Needs further eval with psychiatry. Patient was referred to [facility] further geriatric psych facility, there were no beds at this time. [facility] has been contacted, they declined patient. Due to inability to transfer, will necessitate admission for further management. Problems addressed as follows: Dementia with behavioral disturbance and aggression -Admitted for aggressive behavior and inability for family to care for her at home. Patient declined by 2 geriatric psychiatric facilities. -Initiate Zyprexa 5 mg IV twice daily -Continue memantine 10 mg twice daily and donepezil 10 mg nightly -Behavioral health consult placed, they will see patient on Tuesday -Will reattempt transfer pending bed availability to geriatric psych facility for behavioral disturbance and further treatment. -Patient high risk for decompensation, self-harm, fall. Will need one-on-one sitter. -Encourage day night routine. Will reorient regularly. Regular interaction with staff. Limited interaction at night to help her rest and sleep Enterobacter cloacae UTI Neurogenic bladder Recurrent UTIs -Culture from admission yesterday grew Enterobacter with intermediate sensitivity to Levaquin, resistance to Bactrim, sensitive to doxycycline and ceftriaxone. - Received 1 dose of ceftriaxone in the ER. Doxycycline was called in for administration at home earlier today but patient spit out pills. -Continue ceftriaxone 1 g IV daily for total of 5 days - White cell count normal. No signs of systemic infection or concern for sepsis; repeat CBC, CMP, magnesium ordered for the morning - resume methenamine hippurate after completion of ceftriaxone as preventative/prophylaxis against further UTIs. -Resume oxybutynin per home regimen 15 mg daily states he wants her to be DNR, will need to contact him to have appropriate documentation completed Regular diet
--- NOTE | 2024-04-21 19:25 | PC.NURSE ---
Pt is verbally aggressive, went in to assess, she has cursed me and refused to let me do her vitals or assess her. Pt was boosted up in bed, daughter at bedside
--- NOTE | 2024-04-21 19:29 | PC.NURSE ---
Critical Lipase 9395
[2024-04-21 19:43] VITALS: BP 119/64; PULSE 74; RESP 17; TEMP 36.1; O2SAT 96
--- NOTE | 2024-04-21 19:57 | PC.NURSE ---
v/s at 194 wrong pt
--- NOTE | 2024-04-21 20:02 | PC.NURSE ---
Note placed on this pt with critical Lipase was entered in error
[2024-04-21 20:17] VITALS: BP 148/75; PULSE 76; RESP 20; TEMP 35.7; O2SAT 96
--- NOTE | 2024-04-21 20:33 | PC.NURSE ---
Patient arrived to floor via stretcher from ED at 20:28.
[2024-04-21 20:50] VITALS: BMI 23.8
[2024-04-21] MEDS: OLANZapine 10 MG VIAL 5 MG IM (21:11)
--- NOTE | 2024-04-21 21:39 | PC.NURSE ---
Spoke with over phone about expression of wishes, Dahlia Downs RN confirmed. Pt will not take PO medication due to agitation and swinging arms when attempt to get close.
--- NOTE | 2024-04-21 22:24 | PC.NURSE ---
Completed med rec based on external, not around medications when contacted
[2024-04-22 04:00] VITALS: BMI 23.8
--- NOTE | 2024-04-22 05:20 | PC.NURSE ---
Pt is oriented to self. Pt has memory impairment and does not remember who comes in contact with her. Pt has asked several times where is my and stated that she wants to go home. She has used many obscenities towards staff and her family. Tech remained 1:1 observation with her through the night. Pt has been combative, aggressive, confused, and restless during the first half of the shift. Pt consistently rattled siderails. Blinds were pulled down to decrease stimulation. Pt has slept during the second half. Pt is on RA and has maintained an O2 saturation of 96. Last BP was 145/75 and HR was 76. Vital signs have not been taken since 1999 due to refusal. Pt also refused PO meds. She has only received an IM injection in the right thigh of olanzapine 5 mg during this shift.
[2024-04-22 07:42] LABS: Basophils # 0.1 K/mm3 (0-0.2); Eosinophils # 0.1 K/mm3 (0.0-0.4); Monocytes # 0.4 K/mm3 (0.1-1.0); Red Blood Count 3.64 M/mm3 (4.20-5.40)
[2024-04-22 07:46] LABS: Chloride 107 mmol/L (98-107); Potassium 3.8 mmoL/L (3.5-5.1); Sodium 142 mmol/L (136-145)
[2024-04-22 07:48] LABS: Blood Urea Nitrogen 15 mg/dl (7-17); Creatinine Clearance Estimated 34 mL/min (50-200); Estimated Glomerular Filt Rate 59 ml/min (>60); GFR (African American) 71 ML/MIN (>60)
[2024-04-22 07:49] LABS: Alanine Aminotransferase 8 U/L (12-78); Albumin Level 3.8 g/dl (3.5-5.0); Alkaline Phosphatase 72 U/L (38-126); Anion Gap 9.8 mEq/L (5-15); Aspartate Amino Transferase 20 U/L (14-36); Bilirubin,Total 1.1 mg/dl (0.2-1.3); Calcium 9.3 mg/dl (8.4-10.2); Carbon Dioxide 29 mmol/L (22.0-30.0); Globulin 1.9 g/dL (1.3-3.2); Glucose 91 mg/dl (74-100); Total Protein,Serum 5.7 g/dl (6.3-8.2)
[2024-04-22 07:50] LABS: Basophils % 0.7 % (0.1-2.0); Eosinophils % 1.2 % (0.1-12.0); Hemoglobin 11.9 g/dL (12.2-16.2); Lymphocytes # 2.4 K/mm3 (0.7-4.5); Lymphocytes % 30.6 % (10-50); Magnesium 1.7 mg/dl (1.6-2.3); Mean Corpuscular HGB Conc 32.2 g/dL (31.8-35.4); Mean Corpuscular Hemoglobin 32.7 pg (27.0-31.2); Mean Corpuscular Volume 101.7 fl (81-99); Mean Platelet Volume 8.8 fl (7.4-10.4); Monocytes % 5.5 % (1.7-9.3); Neutrophils # 4.8 K/mm3 (1.8-7.8); Platelet Count 165 K/mm3 (142-424); White Blood Count 7.7 K/mm3 (4.8-10.8)
[2024-04-22 08:00] VITALS: BP 150/97; PULSE 90; RESP 18; TEMP 36.4; O2SAT 94
[2024-04-22] MEDS: OLANZapine 10 MG VIAL 2.5 MG IM (08:49)
[2024-04-22] MEDS: CITALOPRAM 10MG TABLET 10 MG PO (09:03)
--- NOTE | 2024-04-22 11:11 | P.PN_ITS ---
Subjective *Date: 04/22/24 *Time: 11:11 Interval history: Patient did not sleep well overnight after receiving 5 mg of Zyprexa. Intermittently woke up. Spit out medications. Threw her water this morning at the door. Uses curse words and every sentence. Wants to know where her is. Does not believe that he is at home. Believes she has been at the hospital for several days. Cooperative on exam but still verbally aggressive. Took morning meds and food. Tolerating being bathed this morning after rounds. Oriented to self only. Does not believe staff, feels that people are lying to her. Did not recognize her son when he came to visit this morning. Medical Exam Vital signs and Labs for Last 24 Hours: Vital Signs Temp Pulse Pulse Resp BP BP Pulse Ox 04/22/24 08:00 97.6 F 90 18 150/97 H 94 L 04/22/24 07:30 04/22/24 06:49 04/22/24 04:58 04/22/24 03:00 04/22/24 01:00 04/21/24 23:00 04/21/24 21:00 04/21/24 20:17 96.2 F L 76 20 148/75 H 04/21/24 20:00 04/21/24 19:43 97.0 F L 74 17 119/64 96 04/21/24 15:43 120 H 141/93 H 96 04/21/24 15:42 119 H 138/101 H 95 04/21/24 15:31 117 H 18 138/101 H 97 O2 Del Method 04/22/24 08:00 Room Air 04/22/24 07:30 Room Air 04/22/24 06:49 Room Air 04/22/24 04:58 Room Air 04/22/24 03:00 Room Air 04/22/24 01:00 Room Air 04/21/24 23:00 Room Air 04/21/24 21:00 Room Air 04/21/24 20:17 Room Air 04/21/24 20:00 Room Air 04/21/24 19:43 Room Air 04/21/24 15:43 04/21/24 15:42 04/21/24 15:31 Room Air Intake and Output 04/21/24 04/22/24 04/22/24 23:59 07:59 15:59 Intake Total 118 / 118 Output Total 300 / 300 0 / 0 Balance -300 / -300 0 / 118 118 / 118 Intake: Intake, Oral Amount 118 / 118 Output: Output, Urine Amount 300 / 300 0 / 0 Other: Number of Unmeasured Voids 1 1 Weight 55.111 kg 55.111 kg Patient Weight 04/22/24 23:59 Weight 55.111 kg Laboratory Results - last 24 hr 04/21/24 16:00: WBC 10.0 D, RBC 4.15 L, Hgb 13.6, Hct 41.4, MCV 99.6 H, MCH 32.7 H, MCHC 32.8, RDW 14.1, Plt Count 218 D, MPV 8.1, Neut % (Auto) 76.9, Lymph % (Auto) 17.8, [place] % (Auto) 4.3, Eos % (Auto) 0.3, Baso % (Auto) 0.7, Neut # (Auto) 7.7, Lymph # (Auto) 1.8, [place] # (Auto) 0.4, Eos # (Auto) 0.0, Baso # (Auto) 0.1, Sodium 141, Potassium 4.2, Chloride 104, Carbon Dioxide 25, Anion Gap 16.2 H, BUN 15, Creatinine 1.00, Estimated Creat Clear 36, Estimated GFR 52 L, Est GFR ( Amer) 63, Glucose 128 H, Calcium 10.0, Total Bilirubin 1.1, AST 24, ALT 15 D, Alkaline Phosphatase 88, Total Protein 7.0 D, Albumin 4.5 D , Globulin 2.5, Albumin/Globulin Ratio 1.8 04/22/24 06:35: WBC 7.7, RBC 3.64 L, Hgb 11.9 L D, Hct 37.0, MCV 101.7 H, MCH 32.7 H, MCHC 32.2, RDW 14.0, Plt Count 165, MPV 8.8, Neut % (Auto) 62.0, Lymph % (Auto) 30.6, [place] % (Auto) 5.5, Eos % (Auto) 1.2, Baso % (Auto) 0.7, Neut # (Auto) 4.8, Lymph # (Auto) 2.4, [place] # (Auto) 0.4, Eos # (Auto) 0.1, Baso # (Auto) 0.1, Sodium 142, Potassium 3.8, Chloride 107, Carbon Dioxide 29, Anion Gap 9.8, BUN 15, Creatinine 0.90, Estimated Creat Clear 34, Estimated GFR 59, Est GFR ( Amer) 71, Glucose 91 D, Calcium 9.3, Magnesium 1.7, Total Bi lirubin 1.1, AST 20, ALT 8 L D, Alkaline Phosphatase 72, Total Protein 5.7 L, Albumin 3.8 D, Globulin 1.9, Albumin/Globulin Ratio 2.0 H I & O for Labs for Last 24 Hours: Intake & Output 04/19/24 04/20/24 04/21/24 04/22/24 23:59 23:59 23:59 23:59 Intake Total 118 / 118 Output Total 300 / 300 0 / 0 Balance -300 / -300 118 / 118 Weight 55.111 kg 55.111 kg Constitutional: Present no acute distress, thin, chronically ill appearing, combative and agitated Head: Present atraumatic and normocephalic ENT: Present normal exam Respiratory: Present normal respiratory effort; Absent rhonchi, wheezes or crackles Cardiac: Present Reg Rate and Rhythm GI: Present soft and normal bowel sounds; Absent distention or tenderness Extremities: Present normal inspection Skin: Present intact; Absent erythema Neuro: Present Grossly Intact, alert, awake and moves all extremities Comment:: oriented to self only, Additional Findings:: Patient remains agitated. Does not remember staff or no family's names. Does not know how long she has been at the hospital even though she was just admitted yesterday. Verbally berate staff. Poor sleep last night. Frankly agitated and delusional Assessment and Plan *Assessment and plan (1) Dementia with psychotic disturbance: Status: Acute Category: Medical Code(s): F03.92 - Unspecified dementia, unspecified severity, with psychotic disturbance (2) Acute UTI: Status: Acute Category: Medical Code(s): N39.0 - Urinary tract infection, site not specified (3) Neurogenic bladder: Status: Acute Category: Medical Code(s): N31.9 - Neuromuscular dysfunction of bladder, unspecified (4) Memory loss: Status: Chronic Category: Medical Code(s): R41.3 - Other amnesia (5) Hypertension: Status: Acute Qualifiers: Hypertension type: unspecified Qualified Code(s): I10 - Essential (primary) hypertension Category: Medical Code(s): I10 - Essential (primary) hypertension Plan 88-year-old female who was just discharged yesterday for UTI. Has dementia with worsening aggression towards family. Patient is refusing to eat and take med ications at home. Was brought to the ER for evaluation. Patient unable to transfer to geriatric psych facility. Discussed case with ER, admitted for medication adjustments and behavioral health eval along with completion of treatment for her UTI. Medicine agreed to admit. Continuing IV/IM ceftriaxone. Adjusting psychiatric meds. Hemodynamically stable. Problems addressed as follows: Dementia with behavioral disturbance and aggression -Admitted for aggressive behavior and inability for family to care for her at home. Patient declined by 2 geriatric psychiatric facilities. Reattempting transfer today -Initiate Zyprexa 5 mg IM in the morning and 10 mg at night. -Discontinue donepezil -Continue memantine 10 mg twice daily if patient will take it -Initiate citalopram 10 mg daily -Behavioral health consult placed, they will see patient on Tuesday -Patient high risk for decompensation, self-harm, fall. [id number] sitter. -Encourage day night routine. Will reorient regularly. Regular interaction and distraction with staff. Limited interaction at night to help her rest and sleep Enterobacter cloacae UTI Neurogenic bladder Recurrent UTIs -Culture from admission yesterday grew Enterobacter with intermediate sensitivity to Levaquin, resistance to Bactrim, sensitive to doxycycline and ceftriaxone. - Continue ceftriaxone 1 g IV daily for total of 5 days - White cell count normal. No signs of systemic infection or concern for sepsis; repeat CBC, CMP, magnesium ordered for the morning - resume methenamine hippurate after completion of ceftriaxone as preven tative/prophylaxis against further UTIs. - oxybutynin per home regimen 15 mg daily Back pain -Hydrocodone 5 mg as needed every 6 hours DNR Regular diet
[2024-04-22] MEDS: HYDROCODONE/APAP 5/325 MG TABLET 1 TAB PO (11:13)
--- NOTE | 2024-04-22 12:06 | PC.NURSE ---
Hospice referral started. YAMEL Sanchez called back, she will get in touch with patients son.
[2024-04-22 16:00] VITALS: BP 120/65; PULSE 87; RESP 20; TEMP 36.7; O2SAT 93
[2024-04-22] MEDS: cefTRIAXone 1GM VIAL 1 GM IM (16:11)
--- NOTE | 2024-04-22 17:11 | PC.NURSE ---
pt has been verbally abusive to staff today and cussing at staff. Family also visited and they were cussed at. Hospice could not evaluate her well due to pt cussing her today. At 1700 staff when in to check on pt and pt was pleasant and saying please and thank you to staff. Pt is acting opposite of what she had all shift. VSS.
[2024-04-22 20:00] VITALS: BP 96/48; PULSE 69; RESP 16; TEMP 36.6; O2SAT 93
[2024-04-22 20:07] VITALS: O2SAT 93
[2024-04-22] MEDS: OXYBUTYNIN 5MG TAB 5 MG PO (20:07)
[2024-04-22] MEDS: MEMANTINE 10MG TABLET 10 MG PO (20:07)
[2024-04-22] MEDS: OLANZapine 10 MG VIAL IM (20:08)
--- NOTE | 2024-04-23 01:30 | PC.NURSE ---
Patient has not voided since arriving on shift. Bladder scanned and got 161 mL. No distention or discomfort noted.
[2024-04-23 04:00] VITALS: BP 105/62; PULSE 87; RESP 17; TEMP 36.8; O2SAT 96; BMI 23.8
--- NOTE | 2024-04-23 05:25 | PC.NURSE ---
Patient oriented to self this shift. Patient has rested well this shift and tolerated PO meds. Offered water to drink, patient declined. No complaints this shift. Patient has not voided this shift. Bladder scanned at 0130 and had 161 ml. Will bladder scan again at 0630. Call light within reach, bed in lowest position, and bed alarm on.
--- NOTE | 2024-04-23 06:05 | PC.NURSE ---
Patient has still not voided. Bladder scanned patient and got 260 ml.
[2024-04-23] MEDS: OLANZapine 10 MG VIAL 5 MG IM (08:37)
--- NOTE | 2024-04-23 08:49 | SW/DCPLANNER ---
Addendum entered by Era Beyer 04/23/24 13:47: Johanny w/ Hospice stated they can admit patient once she returns home. The plan is for MD to discharge patient home, ambulance transport, Hospice to set up DME today. Addendum entered by Era Beyer 04/23/24 13:09: Johanny is still gathering information to see if patient will meet criteria for Hospice admission. Addendum entered by Era Beyer 04/23/24 12:05: [facility] is not able to accept this patient. After a lengthy discussion between MD and patient/family the decision has been made to return home w/ Hospice services. MD will speak w/ Hospice nurse (Pamela) regarding medications. Johanny w/ Hospice stated that all home DME has been ordered. Johanny will follow up w/ me once DME is delivered. The plan is for patient to discharge home later this afternoon. Original Note: At this time admission for geriatric psych at [facility] and [facility] have been denied. Per intake w/ [facility] they do not accept geriatric patient's w/ diagnosis of dementia. Patient information has been faxed to both [facility] ( [phone] and fax [phone]) and [facility] ([phone] fax [phone]). I will continue to follow up w/ both facilities. I have left a voicemail w/ [facility] ([phone]) and [facility] in [place] ([phone]).
--- NOTE | 2024-04-23 09:52 | HMH.PTWOUND ---
Rehab Inpt Wound Evaluation Rehab IP Wound Evaluation Start: 04/22/24 08:02 Freq: ONCE Status: Active Protocol: Document 04/23/24 09:50 DONNA (Rec: 04/23/24 09:52 PHOBENNY [id number]) Rehab PT Wound Assessment Subjective Subjective 89 yowf adm to [facility] with dementia and worsening psychosis. PT wound consult ordered per protocol due to low dennis scale upio admission. Pt currently has no open wounds and no needs for formal wound care at this time . Ns staff is following protocols for appropriate pressure relief. Thank you for including the wound care team in this pts care. PHYSICIAN CERTIFICATION: I certify the specified therapy services for Jacki Wood are required, authorized, and reviewed every 30 days.
--- NOTE | 2024-04-23 10:31 | EXP.DC.SUM ---
General Admission date:: 04/21/24 Discharge date: 04/23/24 HPI HPI HPI: Ms. Wood is an 88-year-old female who was just discharged yesterday with improved mentation and treatment for UTI. She has a history significant for progressive dementia, behavioral disturbance, hypertension, neurogenic bladder, recurrent UTIs, and decreasing p.o. intake. She presented on because of confusion that have been going on for over a week. Son was asked to take care of her because her could no longer care for her at home due to her aggression toward him and her confusion. Because of her recurring UTIs, she had initially been brought in for evaluation. Found to have UTI and was initiated on treatment. Due to improved mentation yesterday morning, patient was discharged home on oral antibiotics to complete treatment. Last night she took her 200 mg of trazodone, slept for 3 to 4 hours and woke up at approximately 1 this morning irritable and aggressive toward family and caregivers. Has been refusing her medications, refusing to eat and drink, verbally braiding and aggressive with family. Due to her intolerance of medications, they brought her to the ER today for further evaluation. She has been spitting out her meds, screaming profanities at family and staff since arriving to the hospital. Family states they are unable to care for her in her current state at home. On evaluation, she is agitated and aggressive but alert and oriented to self. Afebrile. Hemodynamically stable. Labs unremarkable. Urine culture from yesterday grew Enterobacter cloacae sensitive to ceftriaxone, received 1 g IV in the ER. Multiple attempts made to transfer patient to geriatric psych facility. Turndown by [facility] and [facility]. Medicine consulted for admission and further management of her dementia with psychiatric disturbance. On evaluation in the ER, patient was verbally aggressive with me. Told me to get out of the room. Told me I was lying about her being here yesterday. Shows distrust and paranoia and her . Does not recognize her daughters. Stable on room air. In worsening level of agitation compared to yesterday when she was pleasant and oriented to self and not cussing out staff prior to discharging home Hospital Course Hospital Course Hospital Course: 88-year-old female who was just discharged yesterday for UTI. Has dementia with worsening aggression towards family. Patient is refusing to eat and take medications at home. Was brought to the ER for evaluation. Patient unable to transfer to geriatric psych facility. Discussed case with ER, admitted for medication adjustments and behavioral health eval along with completion of treatment for her UTI. Medicine agreed to admit. Continuing IV/IM ceftriaxone. Adjusting psychiatric meds. Patient has continued to have agitation. Discussed case with multiple psychiatric facilities, does not meet criteria for transfer. Discussed case with hospice. Patient to be admitted to hospice for further management and treatment of her progressing Alzheimer's disease at the request of family. Problems addressed as follows: Alzheimer's dementia with behavioral disturbance and aggression -Admitted for aggressive behavior and inability for family to care for her at home. Patient declined by multiple geriatric psychiatric facilities. Was initiated on olanzapine IM. Will transition to oral at discharge with 5 mg in the morning and 10 mg at night. Her donepezil was discontinued. Will continue her memantine 10 mg twice daily. Initiated on citalopram for mood 10 mg daily. Continue at discharge. Patient has progression of her Alzheimer's causing waxing and waning in mentation as well as severe fluctuations in her mood. Poor p.o. intake. Has lost over 20 pounds in the past year. Is essentially bedbound and dependent on family for all ADLs. In light of her decline, hospice was consulted. Family has elected to transition back to home with hospice assistance. Medically stable to discharge. -Continue Zyprexa. Also added Ativan 0.5 mg every 4 hours as needed for agitation. Enterobacter cloacae UTI Neurogenic bladder Recurrent UTIs -Culture from preceding admission (on ) grew Enterobacter. Intermediate sensitivity to Levaquin which she was initially on. Resistant to Bactrim but sensitive to doxycycline and ceftriaxone. Has received 3 doses of ceftriaxone. Doxycycline at home from previous admission. Would resume doxycycline to complete at least 5 days of antibiotics. 100 mg twice daily. After completion, resume methenamine hippurate as prophylaxis. Continue oxybutynin per home regimen 15 mg extended release daily. Back pain. Attempted hydrocodone during admission. Will continue morphine concentrate at discharge. 5 mg as needed every 4 hours. DNR Extensive discussion with hospice and family. Will discharge home with hospice to assist with agitation from her psychosis and progressing terminal Alzheimer's. Total time spent on discharge 40 minutes in counseling, documentation, discussion with consultants, chart review, and direct care with patient. Exam Data for Last 24 hours Vital signs and Labs for Last 24 Hours: Temp Pulse Resp BP Pulse Ox O2 Del Method 98.3 F 87 17 105/62 L 96 Room Air 04/23/24 04:00 04/23/24 04:00 04/23/24 04:00 04/23/24 04:00 04/23/24 04:00 04/23/24 06:51 I & O for Last 24 hours: Intake & Output 04/20/24 04/21/24 04/22/24 04/23/24 23:59 23:59 23:59 23:59 Intake Total 713 / 713 Output Total 300 / 300 0 / 0 Balance -300 / -300 713 / 713 Weight 55.111 kg 55.111 kg 55.111 kg Constitutional Constitutional: no acute distress, thin, chronically ill appearing, combative and agitated *Routine HEENT Exam Head: Present normocephalic Eye: Present EOMI and PERRL ENT: Present mucous membranes moist *Routine Neck Exam Neck: Present supple; Absent lymphadenopathy *Routine Respiratory Exam Respiratory: Present CTA bilaterally *Routine Cardiovascular Exam Cardiovascular: Present RRR *Routine Abdominal Exam Abdominal: Present soft and normoactive bowel sounds; Absent tenderness *Routine Rectal Exam Patient deferred: visual exam *Routine Exam Patient deferred: external exam *Routine Extremities Exam Extremities: Absent cyanosis, clubbing or edema *Routine Skin Exam Skin: Present warm; Absent rash *Routine Neurological Exam Neurological: Present alert, altered mental status and moving all extremities Comments: Oriented to self, does not know birthday. Verbally abusive. Cussing at staff. Does not want answer questions. Demands to know where her is Routine Psychiatric Exam Psychiatric: Present agitated and paranoid; Absent good insight or good judgment DS: Diagnosis Discharge Diagnosis (1) Alzheimer's dementia with behavioral disturbance: Status: Acute Code(s): G30.9 - Alzheimer's disease, unspecified; F02.818 - Dementia in other diseases classified elsewhere, unspecified severity, with other behavioral disturbance (2) Dementia with psychotic disturbance: Status: Acute Code(s): F03.92 - Unspecified dementia, unspecified severity, with psychotic disturbance (3) Acute UTI: Status: Acute Code(s): N39.0 - Urinary tract infection, site not specified (4) Neurogenic bladder: Status: Acute Code(s): N31.9 - Neuromuscular dysfunction of bladder, unspecified (5) Memory loss: Status: Chronic Code(s): R41.3 - Other amnesia (6) Hypertension: Status: Acute Code(s): I10 - Essential (primary) hypertension Qualifiers: Hypertension type: unspecified Qualified Code(s): I10 - Essential (primary) hypertension Meds Home Medications and Allergies Home Medications Medication Instructions Recorded Confirmed Type oxybutynin chloride 15 mg 15 mg PO DAILY 11/08/22 04/21/24 History tablet,extended release 24 hr methenamine hippurate 1 gram tablet 1 g PO BID 30 days #60 tabs 04/20/24 04/21/24 Rx citalopram 10 mg tablet 10 mg PO DAILY 30 days #30 tabs 04/23/24 Rx doxycycline hyclate 100 mg capsule 100 mg PO BID 5 days #10 caps 04/23/24 Rx lorazepam 0.5 mg tablet (Ativan) 0.5 mg PO Q4H PRN anxiety 5 days 04/23/24 Rx #30 tabs memantine 10 mg tablet 10 mg PO BID memory loss 90 days 04/23/24 Rx #180 tabs morphine concentrate 100 mg/5 mL 5 mg (0.25 mL) PO Q4H PRN pain #30 04/23/24 Rx (20 mg/mL) oral solution mL olanzapine 5 mg disintegrating See Rx Instructions .Route 04/23/24 Rx tablet .COMPLEX Insomnia #90 tabs New Prescriptions to Start Prescriptions: sisaloivanm Wilberto Bloom doxycycline hyclate Wilberto Bloom lorazepam [Ativan] Wilberto Bloom morphine concentrate Wolf,Wilberto olanzapine Wilberto Bloom Allergies Allergy/AdvReac Type Severity Reaction Status Date / Time No Known Allergies Allergy Verified 11/30/23 09:38 Discharge Plan Disposition Patient Disposition: Hospice - Home Condition: Undetermined Discharge Order Discharge Orders: Discharge Order (Routine); Ordered 04/23/24 Ordered By: Wilberto Bloom Follow up Plan Prescriptions/Medication Reconciliation: New citalopram 10 mg Tablet 10 mg PO DAILY 30 Days Qty: 30 0RF lorazepam [Ativan] 0.5 mg tablet 0.5 mg PO Q4H PRN (Reason: anxiety) 5 Days Qty: 30 0RF morphine concentrate 100 mg/5 mL (20 mg/mL) solution 5 mg PO Q4H PRN (Reason: pain) Qty: 30 0RF doxycycline hyclate 100 mg capsule 100 mg PO BID 5 Days Qty: 10 0RF Continued memantine 10 mg tablet 10 mg PO BID 90 Days Qty: 180 3RF methenamine hippurate 1 gram tablet 1 g PO BID 30 Days Qty: 60 0RF oxybutynin chloride 15 mg tablet extended release 24hr 15 mg PO DAILY Changed olanzapine 5 mg Tablet,Disintegrating See Rx Instructions .ROUTE .COMPLEX Qty: 90 0RF Rx Instructions: 5 mg in the morning and 10 mg at night Discontinued donepezil 10 mg tablet 10 mg PO HS 90 Days Qty: 90 1RF trazodone 100 mg tablet 100 mg PO HS losartan 100 mg tablet 100 mg PO DAILY doxycycline hyclate 100 mg capsule 100 mg PO BID 7 Days Qty: 14 0RF Problem Reconciliation Problems Reviewed?: Yes Patient Discharge Instructions ACTIVITY: Continue current activity DIET: continue same diet Patient Instructions: Dementia, DI for Psychosis, Psychosis Providers Primary Care Provider: René Gamez Admit Provider: Wilberto Bloom Attending Provider: Wilberto Bloom
--- NOTE | 2024-04-23 13:35 | PC.NURSE ---
Patient has been verbally and physically aggressive towards staff today. Patient trying to hit and kick staff and continues to curse at staff. Patient oriented to self only and did not recognize family when they visited.
[2024-04-23] MEDS: cefTRIAXone 1GM VIAL 1 GM IM (14:52)
--- NOTE | 2024-04-23 16:00 | P.CONS_ITS ---
History of Present Illness *Admission Date: 04/21/24 *Reason for visit:: psychosis *History of present illness: I interviewed her at bedside. -her daughter in law was there as well When I walked in; she said 'What have you done with my you whore?' -she is not oriented at all -not to person; place; or time -she was living at home wit her ; son; and daughter in law a Lot of the details and history comes from the daughter in law. -she was pleasantly confused until 2 weeks ago -then she stopped eating; not swallowing well -and lots of anger -she was never a mean and hateful person -never cussed or talked negative -and now that is all she does -she yells at them; angry with everyone The zyprexa is a new medicine for her. -they think this has helped her -she was talking and bantering all day long -the other day she went on for over 16 hours striaght nonstop -she wants her here -but doesn't recognize him when he is here -so then she upsets them both -and still wants him here -doesn't recognize anyone anymore -doesn't realize the tv is on -will think it is the neighbors talking loud -or that there are people in the house -they are not able to ground her at all -she is just mad at everyone and everything -nothing makes the agitation better -she is getting the zyprexa IM cause she refuses all PO medications. [facility] Disclaimer: The information contained in this section may have been updated after the patient was seen, as this information can be updated by other users. Medical History Memory change History of cataract History of arthritis History of kidney stones Hypertension Neurogenic bladder Back pain with history of spinal surgery UTI (urinary tract infection) Surgical History History of cataract surgery History of total knee replacement History of discectomy Family History Cancer Hypertension Stroke Social History Smoking Status: Never smoker alcohol intake: never substance use type: denies use current occupational status: retired and disabled Travel in the last 8 weeks: None household members: spouse housing: house Review of Systems Review of Systems Review of systems:: other Meds Home Medications and Allergies Home Medications Medication Instructions Recorded Confirmed Type oxybutynin chloride 15 mg 15 mg PO DAILY 11/08/22 04/21/24 History tablet,extended release 24 hr methenamine hippurate 1 gram tablet 1 g PO BID 30 days #60 tabs 04/20/24 04/21/24 Rx citalopram 10 mg tablet 10 mg PO DAILY 30 days #30 tabs 04/23/24 Rx doxycycline hyclate 100 mg capsule 100 mg PO BID 5 days #10 caps 04/23/24 Rx lorazepam 0.5 mg tablet (Ativan) 0.5 mg PO Q4H PRN anxiety 5 days 04/23/24 Rx #30 tabs memantine 10 mg tablet 10 mg PO BID memory loss 90 days 04/23/24 Rx #180 tabs morphine concentrate 100 mg/5 mL 5 mg (0.25 mL) PO Q4H PRN pain #30 04/23/24 Rx (20 mg/mL) oral solution mL olanzapine 5 mg disintegrating See Rx Instructions .Route 04/23/24 Rx tablet .COMPLEX Insomnia #90 tabs New Prescriptions to Start Prescriptions: citaloivanm Wilberto Bloom doxycycline hyclate Wilberto Bloom lorazepam [Ativan] Wilberto Bloom morphine concentrate Wolf,Wilberto olanzapine Wilberto Bloom Allergies Allergy/AdvReac Type Severity Reaction Status Date / Time No Known Allergies Allergy Verified 11/30/23 09:38 Assessment and Plan *Assessment and plan (1) Alzheimer's dementia with behavioral disturbance: Status: Acute Category: Medical Code(s): G30.9 - Alzheimer's disease, unspecified; F02.818 - Dementia in other diseases classified elsewhere, unspecified severity, with other behavioral disturbance Plan 1. Schedule Zyprexa 10mg BID for mood stability; either IM or PO. -consider switching to BADILLO Relprevv if she stabilizes on the daily dosing 2. Discharge with palliative care when able. -this is the family wishes
== END 2024-04-23 15:30 | disposition hospice, home (50) ==
LOC: ER 16:12 → 2ND 19:26
PROVIDERS: Admitting Provider Internal Medicine Adolescent Medicine; Emergency Provider Emergency Medicine; PCP Internal Medicine; Visit Provider Internal Medicine Adolescent Medicine
DX: G30.9 Alzheimer's disease, unspecified (principal); F02.811 Dementia in other diseases classified elsewhere, unspecified severity, with agitation; N39.0 Urinary tract infection, site not specified; I10 Essential (primary) hypertension; B96.89 Other specified bacterial agents as the cause of diseases classified elsewhere; N31.8 Other neuromuscular dysfunction of bladder; N39.498 Other specified urinary incontinence; Z79.899 Other long term (current) drug therapy
CPT/HCPCS: 36415; 71045; 80053; 83735; 85025; 99285; G0378; J0696; J7120